=== PATIENT | male | born 1965 | race Caucasian/White ===

== ENCOUNTER 2020-06-19 13:35 | Emergency (ER) | payer OTHER, SELFPAY ==
[2020-06-19 14:15] VITALS: BP 108/85; PULSE 100; RESP 18; TEMP 37.2; O2SAT 97; BMI 26.6
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
== END 2020-06-19 15:02 | disposition home or self-care (01) ==
PROVIDERS: Emergency Provider Emergency Medicine
DX: Z04.1 Encounter for examination and observation following transport accident (principal)
CPT/HCPCS: 99282; 99284

== ENCOUNTER 2023-02-03 09:48 | Outpatient (REF) | payer OTHER, SELFPAY ==
[2023-02-03 10:58] LABS: MANUAL DIFF FLAG NO
[2023-02-03 11:10] LABS: Basophils Percent Auto 0.3 % (0-2); Eosinophils Absolute Auto 0.2 X10*3/uL (0.0-0.4); Eosinophils Percent Auto 2.5 % (0-4); Hematocrit 47.2 % (42.0-52.0); Imm Gran Abs Auto 0.02 X10*3/uL (0.00-0.03); Imm Gran Pct Auto 0.3 % (0.0-0.4); Lymphocytes Absolute Auto 2.8 X10*3/uL (1.2-4.9); Mean Corpuscular HGB Conc 33.9 g/dl (31.0-36.0); Mean Corpuscular Hemoglobin 31.1 pg (27.0-33.0); Mean Corpuscular Volume 91.7 fL (80.0-98.0); Monocytes Absolute Auto 0.8 X10*3/uL (0.1-1.2); Neutrophils Absolute Auto 2.7 x10*3/uL (2.0-8.3); Neutrophils Percent Auto 41.9 % (45-73); Platelet Count 288 X10*3/uL (160-400); Red Blood Count 5.15 X10*6/uL (4.60-5.80); White Blood Count 6.4 X10*3/uL (4.8-10.8)
[2023-02-03 11:15] LABS: INTERNATIONAL NORM RATIO 0.9 (0.9-1.1); Prothrombin Time 10.7 SEC (11.1-13.3)
[2023-02-03 12:33] LABS: Alanine Aminotransferase 31 U/L (0-40); Alkaline Phosphatase 112 U/L (39-117); Aspartate Amino Transferase 32 U/L (5-37); Bilirubin Direct 0.2 mg/dL (0.0-0.5); Bilirubin Total 0.4 mg/dL (0.0-1.0); Blood Urea Nitrogen 20 mg/dL (9-16); Estimated Glomerular Filt Rate 38; Total Protein 7.8 g/dL (6.5-8.0)
[2023-02-04 08:16] LABS: HIV AB/AG Nonreactive (Nonreactive); HIV Num 1 0.06 S/CO (0.00-0.99)
[2023-02-05 16:19] LABS: TS Negative Control Passed; TS Panel A 0; TS Panel B 0; TS Positive Control Passed; TSpotTB Negative (Negative)
[2023-02-06 08:33] LABS: HCV Log PCR 4.11 Log IU/mL (NOT DETECTED); HepC Viral Load 12800 IU/mL (NOT DETECTED)
[2023-02-06 13:34] LABS: RPR Rapid Plasma Reagin NON-REACTIVE (NON-REACTIVE)
[2023-02-06 17:13] LABS: Hepatitis C Genotype 1a
[2023-02-11 16:39] LABS: FIB-ALT 21 U/L (9-46); FIB-Alpha-2-Macroglobulin 363 mg/dL (106-279); FIB-Apolipoprotein A1 120 mg/dL (94-176); FIB-GGT 144 U/L (3-85); FIB-Haptoglobin 253 mg/dL (43-212); FIB-Total Bilirubin 0.4 mg/dL (0.2-1.2); Liver Fibrosis Score 0.63; Liver Fibrosis Stage F3; Nec Inflam Act Grade A0; Nec Inflam Act Score 0.13
== END 2023-02-03 09:49 | disposition home or self-care (01) ==
LOC: HO.HHCL 09:48
PROVIDERS: Visit Provider Emergency Medicine
DX: Z11.4 Encounter for screening for human immunodeficiency virus [HIV] (principal); Z11.1 Encounter for screening for respiratory tuberculosis; F11.90 Opioid use, unspecified, uncomplicated; B18.2 Chronic viral hepatitis C
CPT/HCPCS: 36415; 80076; 81596; 82565; 84520; 85025; 85610; 86481; 86592; 87389; 87522; 87902

== ENCOUNTER 2023-03-23 09:32 | Outpatient (REF) | payer OTHER, SELFPAY ==
[2023-03-23 12:24] LABS: Anion Gap 12 (12-20); Blood Urea Nitrogen 23 mg/dL (9-16); Calcium 9.3 mg/dL (8.4-10.2); Carbon Dioxide 22 mmol/L (22-29); Chloride 109 mmol/L (96-108); Estimated Glomerular Filt Rate 43; Glucose Random 120 mg/dL (60-115); Potassium 4.1 mmol/L (3.3-5.1); Sodium 139 mmol/L (135-145)
[2023-03-23 12:34] LABS: Prostate Specific Antigen 9.37 ng/mL (<0.05-4.0)
[2023-03-27 12:08] LABS: Hepatitis C Genotype 1a
[2023-03-30 01:28] LABS: FIB-ALT 43 U/L (9-46); FIB-Alpha-2-Macroglobulin 329 mg/dL (106-279); FIB-Apolipoprotein A1 145 mg/dL (94-176); FIB-GGT 101 U/L (3-85); FIB-Haptoglobin 217 mg/dL (43-212); FIB-Total Bilirubin 0.3 mg/dL (0.2-1.2); Liver Fibrosis Score 0.44; Liver Fibrosis Stage F1-F2; Nec Inflam Act Grade A0-A1; Nec Inflam Act Score 0.28
== END 2023-03-23 09:33 | disposition home or self-care (01) ==
LOC: HO.HHCL 09:32
PROVIDERS: Visit Provider Nurse Practitioner Primary Care
DX: Z12.5 Encounter for screening for malignant neoplasm of prostate (principal); R79.89 Other specified abnormal findings of blood chemistry; R35.1 Nocturia; B18.2 Chronic viral hepatitis C
CPT/HCPCS: 36415; 80048; 81596; 84153; 87902

== ENCOUNTER 2023-08-05 11:35 | Outpatient (REF) | payer OTHER, SELFPAY ==
[2023-08-05 14:02] LABS: MANUAL DIFF FLAG NO
[2023-08-05 14:13] LABS: Basophils Percent Auto 0.5 % (0-2); Eosinophils Absolute Auto 0.1 X10*3/uL (0.0-0.4); Eosinophils Percent Auto 0.8 % (0-4); Hematocrit 45.4 % (42.0-52.0); Hemoglobin 15.6 g/dl (14.0-18.0); Imm Gran Abs Auto 0.02 X10*3/uL (0.00-0.03); Imm Gran Pct Auto 0.3 % (0.0-0.4); Lymphocytes Absolute Auto 2.1 X10*3/uL (1.2-4.9); Lymphocytes Percent Auto 35.3 % (20-40); Mean Corpuscular HGB Conc 34.4 g/dl (31.0-36.0); Mean Corpuscular Hemoglobin 31.9 pg (27.0-33.0); Mean Corpuscular Volume 92.8 fL (80.0-98.0); Mean Platelet Volume 10.8 fL (9.4-12.4); Monocytes Absolute Auto 0.7 X10*3/uL (0.1-1.2); Monocytes Percent Auto 11.8 % (2-11); Neutrophils Absolute Auto 3.1 x10*3/uL (2.0-8.3); Neutrophils Percent Auto 51.3 % (45-73); Platelet Count 295 X10*3/uL (160-400); Red Blood Count 4.89 X10*6/uL (4.60-5.80)
[2023-08-05 14:30] LABS: Estimated Average Glucose 111 mg/dL; Hemoglobin A1C 152.2877 umol/L; Hemoglobin A1c % 5.5 % (<6.0)
[2023-08-05 14:35] LABS: Alanine Aminotransferase 76 U/L (0-40); Albumin Level 4.2 g/dL (3.5-5.0); Alkaline Phosphatase 102 U/L (39-117); Anion Gap 12 (12-20); Aspartate Amino Transferase 63 U/L (5-37); Bilirubin Total 0.3 mg/dL (0.0-1.0); Blood Urea Nitrogen 24 mg/dL (9-16); Calcium 9.7 mg/dL (8.4-10.2); Carbon Dioxide 22 mmol/L (22-29); Chloride 109 mmol/L (96-108); Estimated Glomerular Filt Rate 44; Glucose Random 95 mg/dL (60-115); Potassium 4.2 mmol/L (3.3-5.1); Sodium 139 mmol/L (135-145); Total Protein 7.5 g/dL (6.5-8.0)
== END 2023-08-05 11:36 | disposition home or self-care (01) ==
LOC: HO.HHCL 11:35
PROVIDERS: Visit Provider Nurse Practitioner Family
DX: Z01.812 Encounter for preprocedural laboratory examination (principal)
CPT/HCPCS: 36415; 80053; 83036; 85025

== ENCOUNTER 2023-09-28 11:29 | Outpatient (REF) | payer OTHER, SELFPAY ==
[2023-09-28 13:20] LABS: MANUAL DIFF FLAG NO
[2023-09-28 13:47] LABS: Basophils Percent Auto 0.5 % (0-2); Eosinophils Absolute Auto 0.1 X10*3/uL (0.0-0.4); Eosinophils Percent Auto 1.5 % (0-4); Hematocrit 48.1 % (42.0-52.0); Hemoglobin 16.5 g/dl (14.0-18.0); Imm Gran Abs Auto 0.04 X10*3/uL (0.00-0.03); Imm Gran Pct Auto 0.5 % (0.0-0.4); Lymphocytes Absolute Auto 1.9 X10*3/uL (1.2-4.9); Lymphocytes Percent Auto 26.3 % (20-40); Mean Corpuscular HGB Conc 34.3 g/dl (31.0-36.0); Mean Corpuscular Hemoglobin 32.2 pg (27.0-33.0); Mean Corpuscular Volume 93.9 fL (80.0-98.0); Monocytes Absolute Auto 0.9 X10*3/uL (0.1-1.2); Monocytes Percent Auto 12.6 % (2-11); Neutrophils Absolute Auto 4.3 x10*3/uL (2.0-8.3); Neutrophils Percent Auto 58.6 % (45-73); Platelet Count 291 X10*3/uL (160-400); Red Blood Count 5.12 X10*6/uL (4.60-5.80); Red Cell Distribution Width 13.7 % (11.0-16.0); White Blood Count 7.3 X10*3/uL (4.8-10.8)
[2023-09-28 14:31] LABS: Anion Gap 13 (12-20); Blood Urea Nitrogen 23 mg/dL (9-16); C Reactive Protein 0.58 mg/dL (< or = 0.50); Calcium 9.8 mg/dL (8.4-10.2); Carbon Dioxide 24 mmol/L (22-29); Chloride 105 mmol/L (96-108); Estimated Glomerular Filt Rate 38; Ferritin 103 ng/mL (20-250); Glucose Random 92 mg/dL (60-115); Iron 103 mcg/dL (45-160); Percent Iron Saturation 27 % (15-50); Potassium 4.3 mmol/L (3.3-5.1); Sodium 138 mmol/L (135-145); Total Iron Binding Capacity 387 mcg/dL (228-428); Unsaturated Iron Binding 284 ug/dL
[2023-09-28 14:32] LABS: Erythrocyte Sedimentation Rate 10 MM/HR (0-15)
== END 2023-09-28 11:30 | disposition home or self-care (01) ==
LOC: HO.HHCL 11:29
PROVIDERS: Visit Provider Internal Medicine
DX: G25.81 Restless legs syndrome (principal)
CPT/HCPCS: 36415; 80048; 82728; 83540; 85025; 85652; 86140

== ENCOUNTER 2023-10-16 09:27 | Outpatient (REF) | payer OTHER, SELFPAY ==
[2023-10-16 11:51] LABS: Creatinine Urine 105.33 mg/dL
[2023-10-16 11:57] LABS: Anion Gap 14 (12-20); Blood Urea Nitrogen 24 mg/dL (9-16); Calcium 9.6 mg/dL (8.4-10.2); Carbon Dioxide 22 mmol/L (22-29); Chloride 108 mmol/L (96-108); Estimated Glomerular Filt Rate 40; Glucose Random 137 mg/dL (60-115); Magnesium 2.1 mg/dL (1.6-2.6); Sodium 140 mmol/L (135-145); TSH reflex Free T4 1.64 uIU/mL (0.32-4.0)
== END 2023-10-16 09:28 | disposition home or self-care (01) ==
LOC: HO.HHCL 09:27
PROVIDERS: Visit Provider Nurse Practitioner Primary Care
DX: G25.81 Restless legs syndrome (principal); I10 Essential (primary) hypertension
CPT/HCPCS: 36415; 80048; 82043; 82570; 83735; 84443

== ENCOUNTER 2023-10-30 09:17 | Outpatient (REF) | payer OTHER, SELFPAY ==
--- NOTE | ~2023-10-30 | XR_ITS ---
EXAMINATION: XR ANKLE, RIGHT CLINICAL INFORMATION: Right ankle pain COMPARISON: None available. TECHNIQUE: AP, lateral, and mortise views of the right ankle. FINDINGS: No fracture. Alignment is anatomic. No erosions. Joint spaces are maintained. Soft tissues are normal. XR/XR ankle RT min 3V IMPRESSION: Normal right ankle. Electronically signed by: Robbie Navarro MD 11/05/2023 01:20 PM EDT
[2023-10-30 12:08] LABS: Uric Acid 6.2 mg/dL (3.4-7.0)
[2023-10-30 12:32] LABS: Prostate Specific Antigen 11.85 ng/mL (<0.05-4.0)
== END 2023-10-30 09:18 | disposition home or self-care (01) ==
LOC: HO.HHCL 09:17
PROVIDERS: Visit Provider Nurse Practitioner Primary Care
DX: R39.9 Unspecified symptoms and signs involving the genitourinary system (principal); M25.571 Pain in right ankle and joints of right foot; M25.471 Effusion, right ankle; Z12.5 Encounter for screening for malignant neoplasm of prostate
CPT/HCPCS: 36415; 73610; 84153; 84550

== ENCOUNTER 2024-11-03 10:24 | Outpatient (REF) | payer OTHER, SELFPAY ==
--- NOTE | ~2024-11-03 | XR_ITS ---
EXAMINATION: XR LUMBOSACRAL SPINE CLINICAL INFORMATION: atraumatic chronic back pain COMPARISON: None available. TECHNIQUE: Three views of the lumbosacral spine. FINDINGS: No scoliosis. Normal lordosis. No subluxations. No fracture, compression deformity, or suspicious bone lesion. Severe disc degeneration L5-S1 with disc vacuum phenomenon and marginal disc osteophytic spurring. There is mild disc degeneration at the other levels. Normal facet alignment. There is mild degenerative facet changes L4-S1. Soft tissues demonstrate mild vascular calcifications. XR/XR lumbar spine 2-3V IMPRESSION: 1. No acute findings of the lumbar spine. 2. Spondylosis mainly confined to L5-S1. Electronically signed by: Ramirez Ramos MD 11/03/2024 01:27 PM EDT
--- OUTSIDE RECORDS SUMMARY | 2024-11-03 09:00 | XMS_ITS | Encounter Summary ---
Author Organization [employer] Address [address] [place] [address] 7[address] [place] [address] Care Team Providers Care Chip Person Name Role Phone Jessa Gilliland Primary Care Provider [phone] Reason for Visit * Reason Comments CHW - Office Visit Encounter Details Date Type Department Care Team (Latest Contact Info) Description 11/03/2024 9:00 AM EDT Office Visit [facility] [address] [place], [place] [phone] Jessa Gilliland ANP [address] [place] [address] Cardiomyopathy, unspecified type (CMS/HCC) (Primary Dx); Cardiac defibrillator in situ; Chronic hepatitis C without hepatic coma (CMS/HCC); Smoker; Impaired fasting glucose; Elevated PSA, between 10 and less than 20 ng/ml; Primary hypertension; Mitral valve insufficiency, unspecified etiology; Screening for malignant neoplasm of colon; Screening for colon cancer; Chronic midline low back pain with bilateral sciatica Social History Tobacco Use Types Packs/Day Years [...] Questionnaire -2 Score 0 11/03/2024 10:15 AM Liz Toscano MA * Little interest or pleasure in doing things Answer Date of Assessment Author Not at all 11/03/2024 10:15 AM EDT Liz Monteiro MA * Feeling down, depressed, or hopeless Answer Date of Assessment Author Not at all 11/03/2024 10:15 AM Liz Toscano MA * Trouble falling or staying asleep, or sleeping too much Answer Date of Assessment Author Nearly every day 11/03/2024 10:15 AM EDLiz Dudley MA * Feeling tired or having little energy Answer Date of Assessment Author Nearly every day 11/03/2024 10:15 AM Liz Toscano MA * Poor appetite or overeating Answer Date of Assessment Author Several days 11/03/2024 10:15 AM Liz Toscano MA * Feeling bad about yourself - or that you are a failure or have let yourself or your family down Answer Date of Assessment Author Not at all 11/03/2024 10:15 AM Liz Toscano MA * Trouble concentrating on things, such as reading the newspaper or watching television Answer Date of Assessment Author Several days 11/03/2024 10:15 AM Liz Toscano MA * Moving or speaking so slowly that other people could have noticed? Or the opposite - being so fidgety or restless that you have been moving around a lot more than usual. Answer Date of Assessment Author Several days 11/03/2024 10:15 AM Liz Toscano MA * Thoughts that you would be better off or hurting yourself in some way Answer Date of Assessment Author Not at all 11/03/2024 10:15 AM Liz Toscano MA * Patient Health Questionnaire-9 Score Answer Date of Assessment Author 9 11/03/2024 10:15 AM Liz Toscano MA * How difficult have these problems made it for you to do your work, take care of things at home, or get along with other people? Answer Date of Assessment Author Not difficult at all 11/03/2024 10:15 AM Liz James MA documented as of this encounter Plan of Treatment Upcoming Encounters Date Type Department Care Team (Late st Contact Info) Description 11/21/2024 9:30 AM EDT Clinical Support [facility] [address] [place] [phone] 01/05/2025 9:30 AM EST Office Visit [facility] [address] [place] [phone] Jessa Gilliland ANP [address] [place] [address] Scheduled Orders Name Type Priority Associated Diagnoses Orde r Schedule PSA,Total Lab Routine Elevated PSA, between 10 and less than 20 ng/ml Expected: 11/03/2024 (Approximate), Expires: 11/03/2025 Lipid Panel, Standard Lab Routine Impaired fasting glucose Expected: 11/03/2024 (Approximate), Expires: 11/03/2025 Comprehensive Metabolic Panel Lab Routine Primary hypertension Expected: 11/03/2024 (Approximate), Expires: 11/03/2025 Hepatitis C Viral RNA, Quantitative, Real-Time PCR Lab Routine Chronic hepatitis C without hepatic coma (CMS/HCC) Expected: 11/03/2024 (Approximate), Expires: 11/03/2025 Albumin, Random Urine W/Creatinine Lab Routine Primary hypertension Expected: 11/03/2024 (Approximate), Expires: 11/03/2025 Hemoglobin A1c Lab Routine Impaired fasting glucose Expected: 11/03/2024 (Approximate), Expires: 11/03/2025 Cologuard colon cancer screening Lab Routine Screening for colon cancer Ordered: 11/03/2024 XR Lumbar Spine 2-3 Views Imaging Routine Chronic midline low back pain with bilateral sciatica Expected: 11/03/2024, Expires: 11/03/2025 documented as of this encounter Visit Diagnoses Diagnosis Cardiomyopathy, unspecified type (CMS/HCC)- Primary Cardiac defibrillator in situ Chronic hepatitis C without hepatic coma (CMS/HCC) Smoker Tobacco use disorder Impaired fasting glucose Elevated PSA, between 10 and less than 20 ng/ml Primary hypertension Unspecified essential hypertension Mitral valve insufficiency, unspecified etiology Screening for malignant neoplasm of colon Screening for colon cancer Special screening for malignant neoplasms, colon Chronic midline low back pain with bilateral sciatica documented in this encounter Additional Health Concerns Assessment Noted Time PHQ-9 Depression Total Score: 9 11/04/19 25 10:15 AM EDT documented as of this encounter Care Teams Chip Person Relationship Specialty Start Date End Date Jessa Gillilnad ANP [address] [place] [address] PCP - General Family Medicine 12/20/19 documented as of this encounter
--- OUTSIDE RECORDS SUMMARY | 2024-11-03 11:44 | XMS_ITS | Encounter Summary ---
Author Organization [facility] Address [address] [place] [phone] Phone Care Team Providers Care Dietary Internship Name Role Phone Unknown, Unknown Primary Care Provider Arthur dillon Encounter Details Date Type Department Care Team (Late st Contact Info) Description 10/21/2018 Procedure [facility] [address] [place] [address] Social History Tobacco Use Types Packs/Day Years Used Date Smoking Tobacco: Never Assessed Sex and Gender Information Value Date Recorded Sex Assigned at Not on file Legal Sex Male 2:33 PM EST Gender Identity Not on file Sexual Orientation Not on file documented as of this encounter Plan of Treatment Not on file documented as of this encounter Visit Diagnoses Not on filedocumented in this encounter Care Teams Dietary Internship Relationship Specialty Start Date End Date Unknown, Unknown, PCP - General 03/10/18 documented as of this encounter Additional Source Comments The information contained in this document represents components of the legal health record. It is not the complete legal health record.[facility]
--- OUTSIDE RECORDS SUMMARY | 2024-11-03 11:44 | XMS_ITS | Encounter Summary ---
Author Organization [employer] Address [address] [place] [address] [address]t h Floor [place] [id number] Care Team Providers Care Catalogue Maker Name Role Phone Jessa Gilliland Primary Care Provider [phone] Reason for Visit * Reason Onset Date Comments chart prep 07/28/2023 Encounter Details Date Type Department Care Team (Late st Contact Info) Description 07/28/2023 Telephone [facility] [address] [place] [address] Jessa Gilliland ANP [address] [place] [address] chart prep Social History Tobacco Use Types Packs/Day Years Used Date Smoking Tobacco: Every Day Cigarettes 0.3 0.5 Alcohol Use Standard Drinks/Week Comments Yes 0 (1 standard drink = 0.6 oz pur e alcohol) Depression Answer Date Recorded Patient Health Questionnaire-9 Score 9 03/10/2023 Patient Health Questionnaire-9 Score 9 03/10/2023 Last PHQ-9: Questionnaire Data Not on file 0 03/10/2023 Housing Stability Answer Date Recorded What is your housing situation today? I have yoli nieves 03/10/[address] you li ve. Do you have problems with any of the following? None of the above 03/10/2023 Food Insecurity Answer Date Recorded Within the past 12 months, y ou worried that your food would run out before you got money to buy more: Never True 03/10/2023 Within the past 12 months,th e food you bought just didn't last and you didn't have enough money to get more: Never True 11/2023 Transportation Answer Date Recorded In the past 12 months, has l ack of transportation kept you from medical appts, meetings, work or from getting things needed for daily living? No 03/10/2023 Utilities Answer Date Recorded In the past 12 months, has t he electric, gas, oil or water company threatened to shut off services in your home? No 03/10/2023 Depression Answer Date Recorded Patient Health Questionnaire-2 Score 2 03/10/2023 Sex and Gender Information Value Date Recorded Sex Assigned at Male 12/30/2021 10:15 AM EDT Legal Sex Male 10:15 AM EDT Gender Identity Male 12/30/2021 10:15 AM EDT Sexual Orientation Straight 12/30/2021 10 :15 AM EDT documented as of this encounter Plan of Treatment Upcoming Encounters Date Type Department Care Team (Late st Contact Info) Description 11/21/2024 9:30 AM EDT Clinical Support [address] [address] 01/05/2025 9:30 AM EST Office Visit [address] [address] Jessa Gilliland ANP [address] [place] [phone] documented as of this encounter Visit Diagnoses Not on filedocumented in this encounter Additional Health Concerns Assessment Noted Time PHQ-9 Depression Total Score: 9 03/10/19 24 10:46 AM EST documented as of this encounter Care Teams Catalogue Maker Relationship Specialty Start Date End Date Jessa Gilliland ANP [address] [place] [phone] PCP - General Family Medicine 12/20/19 documented as of this encounter
--- OUTSIDE RECORDS SUMMARY | 2024-11-03 11:44 | XMS_ITS | Clinical Summary ---
Author Organization [employer] Address [address] [facility] 7t [place] [address] Care Team Providers Care Crap Game Box Person Name Role Phone Jessa Gilliland Primary Care Provider [phone] Allergies No known active allergies Medications carvedilol (Coreg) 25 MG tablet Take 1 tablet by mouth in the morning and at bedtime. Active chlorhexidine (Periogard) 0.12 % solution Place 15 mL into mouth between cheek and gum every 12 (twelve) hours. 1 Active furosemide (Lasix) 40 MG tablet Take 1 tablet by mouth 1 (one) time each day. Active hydrALAZINE (Apresoline) 50 MG tablet Take 1 tablet by mouth in the morning, at noon, and at bedtime. Active lisinopril 40 MG tablet Take 1 tablet by mouth 1 (one) time each day. Active naloxone (Narcan) 4 mg/0.1 mL nasal spray Administer 4 mg into affected nostril(s) if needed for opioid reversal. May repeat every 2-3 minutes if needed, alternating nostrils, until medical assistance becomes available. Active cyclobenzaprine (Flexeril) 10 MG tablet 1 tablet PO at bedtime prn leg cramps/restless ness. 3 tablet 4 Active cyclobenzaprine (Flexeril) 10 MG tablet 1 tablet PO q8-12 hours prn muscle cramps and restlessness. May cause drowsiness. 15 tablet 4 Active albuterol 108 (90 Base) MCG/ACT inhaler INHALE 2 PUFFS EVERY 4 HOURS IF NEEDED FOR WHEEZING. 18 g 5 Active rOPINIRole (Requip) 0.5 MG tabletIndication s:Restless leg syndrome TAKE 1 TABLET BY MOUTH TWICE A DAY 180 tablet 1 5 Active amLODIPine (Norvasc) 10 MG tablet Take 1 tablet by mouth Once per day. 5 Active Blood Pressure kitIndications:P rimary hypertension 1 each 2 times daily. 1 kit 5 11/04/19 26 Active Active Problems Problem Noted Date Diagnosed Date Elevated PSA, between 10 and less than 20 ng/ml 11/03/2024 Chronic cough 07/30/2024 Wheeze 08/05/2023 Assessment & Plan (08/06/2023 2:58 PM EDT): Encouraged complete smoking cessation, prn albuterol prescribed for inspiratory wheeze audible on exam Pre-op evaluation 08/04/2023 Assessment & Plan (08/06/2023 3:02 PM EDT): Pt with significant social challenges, sig perioral disease, with active symptoms with hx of ANANDA, hep c, tobacco use, cardiomyopathy, htn, with a cardiac defbrilator in situ whom I suspect has mild stable COPD. Amox is renewed, and pt is at average risk for complications with consultation of cardiac team. Pt wishes to proceed with surgery. Homeless 03/10/2023 Malocclusion 05/30/2022 Partially edentulous mandible 05/22/2022 Periodontal disease 01/31/2022 Cardiac defibrillator in situ 02/18/2021 Assessment & Plan (08/06/2023 2:58 PM EDT): Per cardiology, stable Cardiomyopathy 02/18/2021 Assessment & Plan (08/06/2023 2:59 PM EDT): Hx of heart failure, however currently stable Mitral valve regurgitation 02/18/2021 Smoker 12/26/2011 Chronic hepatitis C 10/27/2011 Chronic low back pain 10/27/2011 Depressive disorder 10/27/2011 History of alcohol abuse 10/27/2011 Hypertension 10/27/2011 Assessment & Plan (08/06/2023 2:59 PM EDT): Bp at goal today, continue current regimen Impaired fasting glucose 10/27/2011 Opioid dependence on agonist therapy 10/22/2011 Assessment & Plan (08/06/2023 2:59 PM EDT): Recently stopped suboxone, reports stable no drug use or cravings Encounters Date Type Department Care Team Description 11/03/2024 9:00 AM EDT Office Visit [facility] [address] [place] [address] Jessa Gilliland ANP Cardiomyopathy, unspecified type (CMS/HCC) (Primary Dx); Cardiac defibrillator in situ; Chronic hepatitis C without hepatic coma (CMS/HCC); Smoker; Impaired fasting glucose; Elevated PSA, between 10 and less than 20 ng/ml; Primary hypertension; Mitral valve insufficiency, unspecified etiology; Screening for malignant neoplasm of colon; Screening for colon cancer; Chronic midline low back pain with bilateral sciatica 11/03/2024 Travel 10/27/2024 Patient Outreach [facility] [address] [place] [address] Jessa Gilliland ANP Pre-visit Planning ((Unable to reach for PVP screening, LVM) to be completed in office ) 09/23/2024 Refill [facility] [address] [place] [address] Jessa Gilliland ANP Restless leg syndrome 08/26/2024 Refill [facility] [address] [place] [address] Jessa Gilliland ANP Restless leg syndrome 08/20/2024 Refill [facility] [address] [place] [address] Radha Petit FNP from Last 3 Months Immunizations Immunization Administration Dates Next Due Hep B, adult 02/27/2010,05/08/2005,04/09/2005 Influenza Injectable Quadriv alant Preservative Free IIV4 MDCK 02/20/2020 Influenza injectable quadriv alent IIV4 with preservative 12/29/2016 Influenza injectable quadriv alent preservative free 03/10/2023,03/22/2021,12/25/2014 Influenza, IIV3, injectable 12/26/2013 Influenza, Split (incl. melissa fied surface antigen) 10/27/2011 MMR 11/19/2000 Moderna Covid-19 Vaccine 12+ 03/22/2021,06/28/19,05/30/2020 Pfizer Covid-19 Vaccine 12+ 03/10/2023 Pneumococcal Conjugate PCV 20 11/03/2024 Pneumococcal Polysaccharide PPSV23 04/09/2005 TD (adult), 2 Lf tetanus tox oid, preservative free, adsorbed 11/19/2000 Tdap 11/03/2024,10/27/2011 Zoster, Recombinant 04/24/2020,02/20/2020 Social History Tobacco Use Types Packs/Day Years [...] with others, in a hotel, in a senior living, living outside on the street, on a [...] Orientation Straight 12/30/2021 10 :15 AM EDT Last Filed Vital Signs Vital Sign Reading Time Taken Comments Blood Pressure 140/102 11/03/2024 9:26 AM EDT Pulse 110 11/03/2024 9:26 AM EDT Temperature 36.2 C (97.1 F) 11/03/2024 9:26 AM EDT Respiratory Rate 16 11/03/2024 9:26 AM EDT Oxygen Saturation 99% 11/03/2024 9:26 AM EDT Inhaled Oxygen Concentration - - Weight 85.3 kg (188 lb) 11/03/2024 9:26 AM EDT Height 167.6 cm (5' 6 ) 07/29/2024 11:12 AM EDT Body Mass Index 30.34 07/29/2024 11:12 AM EDT Plan of Treatment Upcoming Encounters Date Type Department Care Team (Late st Contact Info) Description 11/21/2024 9:30 AM EDT Clinical Support [facility] [address] [place] [phone] 01/05/2025 9:30 AM EST Office Visit [facility] [address] [place] [address] Jessa Gilliland ANP [address] [place] [address] Health Maintenance Due Date Last Done Comments CT Colonography 1966 Colonoscopy 1966 Colorectal Cancer Screening 1966 Dental Oral Exam 1966 Dental Prophylaxis 1966 Dental X-Ray: Bitewings 1966 Dental X-Ray: Full Mouth 1966 FIT DNA/Cologuard 1966 FIT 1966 FOBT 1966 Sigmoidoscopy 1966 Hepatitis A Vaccines (1 of 2 - Risk 2-dose series) 1985 COVID-19 Vaccine ( season) 2024 03/10/2023, 03/22/2021, 06/27/2020, Additional history exists Influenza Vaccine (#1) 2024 , 03/22/2021, 02/20/2020, Additional history exists Lipid Panel 02/19/2025 02/20/2020 Depression Monitoring 05/03/2025 11/03/2024, 025 Alcohol/Substance Use Screening 07/29/2025 07/29/2024 Disability Screening 07/29/2025 07/29/2024 SDOH Screening 11/03/2025 11/03/2024 Tobacco Screening 11/03/2025 11/03/2024 DTaP/Tdap/Td Vaccines (3 - Td or Tdap) 11/03/2034 11/03/2024, 10/27/2011, 11/19/2000 RSV Patients and Patients Aged 60 years or older (1 - 1-dose 75+ series) 2041 Hepatitis B Vaccines Completed 02/27/2010, 05/08/2005, 04/09/2005 Zoster Vaccines Completed 04/24/2020, 02/20/2020 HIV Screening Completed 02/03/2023, 12/31, 02/20/2020 Pneumococcal Vaccine: 50+ Years Completed 11/03/2024, 04/09/2005 HIB Vaccines Aged Out No longer eligi ble based on patient's age to complete this topic HPV Vaccines Aged Out No longer eligi ble based on patient's age to complete this topic IPV Vaccines Aged Out No longer eligi ble based on patient's age to complete this topic Meningococcal B Vaccine Aged Out No l onger eligible based on patient's age to complete this topic Meningococcal Vaccine Aged Out No justin fortunato eligible based on patient's age to complete this topic RSV under 20 months Aged Out No longe r eligible based on patient's age to complete this topic Rotavirus Vaccines Aged Out No longer eligible based on patient's age to complete this topic Procedures Procedure Name Priority Date/Time Associated Diagnosis Comments HIV 1/2 ANTIGEN/ANTIBODY, FOURTH GENERATION W/RFL Routine 02/03/2023 9:53 AM EST Chronic hepatitis C without hepatic coma (CMS/HCC) LIPID PANEL, STANDARD Routine 02/20/2020 12:03 PM EST from Last 3 Months or Most Recently Relevant to Health Maintenance Results * HIV-1/2 Antigen and Antibodies, Fourth Generation, with Reflexes (02/03/2023 9:53 AM EST) HIV AB/AG Nonreactive Nonreactive [facility] Comment:HIV-1 p24 Ag and/or HIV-1/HIV-2 Ab not detected.A test result that is nonreactive does not exclude thepossibility of exposure to or infection with HIV-1 and/orHIV-2. Nonreactive results in this assay for individualswith prior exposure to HIV-1 and/or HIV-2 may be due toantigen and antibody levels that are below the limit ofdetection of this assay.The [employer] HIV Ag/Ab Combo assay result andsupplemental assay results should be interpreted inconjunction with the patient's clinical presentation,history and other laboratory results. If the results areinconsistent with clinical evidence, additional testing issuggested to confirm the result. Blood Venous blood specimen / Unknown 02/03/2023 9:53 AM EST 02/03/2023 10:56 AM EST us Carlos Whitlock MD LAB BLOOD ORDERABLES Final Res ult [facility] [address] [place] [phone] * LIPID PANEL, STANDARD (02/20/2020 12:03 PM EST) Pathologist [facility] Chol/HDLC Ratio 3.0 <5.0 (calc) [facility] Cholesterol, Total 167 <200 mg/dL [facility] HDL Cholesterol 56 > OR = 40 mg/dL [facility] LDL Cholesterol 92 mg/dL (calc) [facility] Comment: Reference range: <100 Desirable range <100 mg/dL for primary prevention; <70 mg/dL for patients with CHD or diabetic patients with > or = 2 CHD risk factors. LDL-C is now calculated using the Alfonso-Melendez calculation, which is a validated novel method providing better accuracy than the Friedewald equation in the estimation of LDL-C. Alfonso SS et al. PAKO. 2013;310(19): 0972-7535 (http://education.[employer].com/faq/YQM586) Non-HDL Cholesterol 111 <130 mg/dL (calc) [facility] Comment: For patients with diabetes plus 1 major ASCVD risk factor, treating to a non-HDL-C goal of <100 mg/dL (LDL-C of <70 mg/dL) is considered a therapeutic option. Triglycerides 95 <150 mg/dL [facility] 02/20/2020 12:0 3 PM EST us [facility] LAB BLOOD ORDERABLES Final Resul t [facility] [address] from Last 3 Months or Most Recently Relevant to Health Maintenance Insurance [employer] [facility] < [address] [place] [id number] Care Teams Crap Game Box Person Relationship Specialty Start Date End Date Jessa Gilliland ANP [address] [place] [phone] PCP - General Family Medicine 12/20/19
--- OUTSIDE RECORDS SUMMARY | 2024-11-03 11:44 | XMS_ITS | Encounter Summary ---
Author Organization [employer] Address [address] [place] [address] 7t [place] [address] Care Team Providers Care Key Punch Teacher Name Role Phone Jessa Gilliland Primary Care Provider [phone] Reason for Visit * Reason Onset Date Comments Call Back Request 08/18/2023 Encounter Details Date Type Department Care Team (Late st Contact Info) Description 08/18/2023 Telephone [facility] [address] [place], [place] [phone] Jessa Gilliland ANP 230 [place], [place] [phone] Call Back Request Social History Tobacco Use Types Packs/Day Years [...] AM EDT documented as of this encounter Miscellaneous Notes * Telephone Encounter - Mandi Cortes - 08/18/2023 10:41 AM EDT Tc from pt requesting to speak with a nurse in regards to 6 Pre-Op appointment. Pt states is scheduled 08/31 but pt is still in pain. Declined triage. Please contact pt at [phone] documented in this encounter Plan of Treatment Upcoming Encounters Date Type Department Care Team (Late st Contact Info) Description 11/21/2024 9:30 AM EDT Clinical Support [facility] [address] [place] [address] 01/05/2025 9:30 AM EST Office Visit [facility] [address] [place] [address] Jessa Gilliland ANP [address] [place] [address] documented as of this encounter Visit Diagnoses Not on filedocumented in this encounter Additional Health Concerns Assessment Noted Time PHQ-9 Depression Total Score: 9 03/10/19 24 10:46 AM EST documented as of this encounter Care Teams Key Punch Teacher Relationship Specialty Start Date End Date Jessa Gilliland ANP [address] [place] [address] PCP - General Family Medicine 12/20/19 documented as of this encounter
--- OUTSIDE RECORDS SUMMARY | 2024-11-03 11:44 | XMS_ITS | Encounter Summary ---
Author Organization [employer] Address [address] [place] [address] 7t [place] [address] Care Team Providers Care Rough Rice Tender Name Role Phone Jessa Gilliland Primary Care Provider [phone] Encounter Details Date Type Department Care Team (Late st Contact Info) Description 07/28/2023 Telephone [facility] 230 [place] [address] Jessa Gilliland ANP 230 [place] [address] Social History Tobacco Use Types Packs/Day Years [...] Description 11/21/2024 9:30 AM EDT Clinical Support [address] [address] 01/05/2025 9:30 AM EST Office Visit [address] [address] Jessa Gilliland ANP [address] [place] [address] documented as of this encounter Visit Diagnoses Not on filedocumented in this encounter Additional Health Concerns Assessment Noted Time PHQ-9 Depression Total Score: 9 03/10/19 24 10:46 AM EST documented as of this encounter Care Teams Rough Rice Tender Relationship Specialty Start Date End Date Jessa Gilliland ANP [address] [place] [address] PCP - General Family Medicine 12/20/19 documented as of this encounter
--- OUTSIDE RECORDS SUMMARY | 2024-11-03 11:44 | XMS_ITS | Clinical Summary ---
Author Organization [facility] Address [address] [place] [phone] Phone Care Team Providers Care Machine Assembler Supervisor Name Role Phone Unknown, Unknown Primary Care Provider Arthur dillon Social History Tobacco Use Types Packs/Day Years Used Date Smoking Tobacco: Never Assessed Education Answer Date Recorded Are you interested in more education? Not on maria d e 06/27/2022 Are you concerned about learning? Not on file 06/27/2022 No 06/27/2022 No 06/27/2022 Digital Access Answer Date Recorded No 07/29/2022 No 07/29/2022 No 07/29/2022 Reliable internet access at home? Not on file 07/29/2022 Device with a working camera? Not on file Sex and Gender Information Value Date Recorded Sex Assigned at Not on file Legal Sex Male 2:33 PM EST Gender Identity Not on file Sexual Orientation Not on file Plan of Treatment Not on file Medical Devices Not on file Insurance [facility] ONE CARE MEDICARE REPLACEMENT SAMANTHA CORRALES [id number] [facility] MEDICARE REPLACEMENT [facility] MEDICARE REPLACEMENT [facility] MEDICARE REPLACEMENT [facility] CARE MEDICARE REPLACEMENT Member Subscriber Plan / Payer (Ef fective 2018-Present) Name:Pancho Hernandez Relation to Subscriber:Self Name:Pancho Hernandez Payer ID:[id number] (NAIC) Group ID:Not on file Type:Medicare Address: [address] SAMANTHA CORRALES05 [facility] ONE CARE MEDICARE REPLACEMENT Care Teams Machine Assembler Supervisor Relationship Specialty Start Date End Date Unknown, Unknown, PCP - General 03/10/18 Additional Source Comments The information contained in this document represents components of the legal health record. It is not the complete legal health record.[facility]
--- OUTSIDE RECORDS SUMMARY | 2024-11-03 11:44 | XMS_ITS | Encounter Summary ---
Author Organization [employer] Address [address] [place] [address] 7t [place] [address] Care Team Providers Care Senior Ux Designer Name Role Phone Jessa Gilliland Primary Care Provider [phone] Reason for Visit * Reason Comments Med Refill Encounter Details Date Type Department Care Team ([facility] Contact Info) Description 11/07/2022 Refill [facility] [address] [place] [address] [phone] Carlos Whitlock MD [address] [place] [address] [phone] Uncomplicated opioid use Social History Tobacco Use Types Packs/Day Years Used Date Smoking Tobacco: Every Day Cigarettes 0.3 0.5 Alcohol Use Standard Drinks/Week Comments Yes 0 (1 standard drink = 0.6 oz pur e alcohol) Sex and Gender Information Value Date Recorded Sex Assigned at Male 12/30/2021 10:15 AM EDT Legal Sex Male 10:15 AM EDT Gender Identity Male 12/30/2021 10:15 AM EDT Sexual Orientation Straight 12/30/2021 10 :15 AM EDT documented as of this encounter Plan of Treatment Upcoming Encounters Date Type Department Care Team ([facility] Contact Info) Description 11/21/2024 9:30 AM EDT Clinical Support [facility] [address] [place] [address] [phone] 01/05/2025 9:30 AM EST Office Visit [facility] [address] [place] [address] Jessa Gilliland ANP 230 [place] [address] documented as of this encounter Visit Diagnoses Diagnosis Uncomplicated opioid use documented in this encounter Care Teams Senior Ux Designer Relationship Specialty Start Date End Date Jessa Gilliland ANP 230 [place] [address] PCP - General Family Medicine 12/20/19 documented as of this encounter
--- OUTSIDE RECORDS SUMMARY | 2024-11-03 11:44 | XMS_ITS | Encounter Summary ---
Author Organization [employer] Address [address] [place] [address] 7t [place] [address] Care Team Providers Care Admission Discharge Rn Name Role Phone Jessa Gilliland Primary Care Provider [phone] Reason for Visit * Reason Comments Med Refill Encounter Details Date Type Department Care Team ([facility] Contact Info) Description 09/12/2022 Refill [facility] [address] [place] [address] [phone] Carlos Whitlock MD [address] [place] [address] [phone] Uncomplicated opioid use Social History Tobacco Use [...] Upcoming Encounters Date Type Department Care Team ([facility] Contact Info) Description 11/21/2024 9:30 AM EDT Clinical Support [facility] [address] [place] [address] [phone] 01/05/2025 9:30 AM EST Office Visit [facility] [address] [place] [address] Jessa Gilliland ANP 230 [place] [address] documented as of this encounter Visit Diagnoses Diagnosis Uncomplicated opioid use documented in this encounter Care Teams Admission Discharge Rn Relationship Specialty Start Date End Date Jessa Gilliland ANP [address] [place] [address] PCP - General Family Medicine 12/20/19 documented as of this encounter
--- OUTSIDE RECORDS SUMMARY | 2024-11-03 11:44 | XMS_ITS | Encounter Summary ---
Author Organization [employer] Address [address] [place] [address] 7t [place] [address] Care Team Providers Care Major Case Detective Name Role Phone Jessa Gilliland Primary Care Provider [phone] Encounter Details Date Type Department Care Team (Latest Contact Info) Description 11/03/2024 Travel Social History Tobacco Use Types Packs/Day Years Used Date Smoking Tobacco: Former Cigarettes 0.3 0.5 Passive Smoke Exposure: Past Alcohol Use Standard Drinks/Week Comments Yes 0 [...] with others, in a hotel, in a assisted, living outside on the street, on a [...] AM EDT documented as of this encounter Functional Status * Over the [...] 11/03/2024 10:15 AM EDLiz Dudley MA * Trouble concentrating on things, such [...] 10:15 AM EDT Liz Monteiro MA * Thoughts that you would be better off or hurting yourself in some way Answer Date of Assessment Author Not at all 11/03/2024 10:15 AM EDT Liz Monteiro MA * Patient Health Questionnaire-9 Score Answer [...] Mccain [place] documented as of this encounter Plan of Treatment Upcoming Encounters Date Type Department Care Team (Late st Contact Info) Description 11/21/2024 9:30 AM EDT Clinical Support [address] [address] 01/05/2025 9:30 AM EST Office Visit [address] [address] Jessa Gilliland ANP [address] [place] [address] documented as of this encounter Visit Diagnoses Not on filedocumented in this encounter Additional Health Concerns Assessment Noted Time PHQ-9 Depression Total Score: 9 11/04/19 25 10:15 AM EDT documented as of this encounter Care Teams Major Case Detective Relationship Specialty Start Date End Date Jessa Gilliland ANP [address] [place] [address] PCP - General Family Medicine 12/20/19 documented as of this encounter
--- OUTSIDE RECORDS SUMMARY | 2024-11-03 11:44 | XMS_ITS | Encounter Summary ---
Author Organization [employer] Address [address] [place] [address] 7t [place] [address] Care Team Providers Care Die Attacher Name Role Phone Jessa Gilliland Primary Care Provider [phone] Encounter Details Date Type Department Care Team (Latest Contact Info) Description 01/23/2021 Abstract [facility] CONVERSIONS Dental, Provider, DDS Social History Tobacco Use Types Packs/Day Years [...] 11/21/2024 9:30 AM EDT Clinical Support [facility] [address] [place] [address] 01/05/2025 9:30 AM EST Office Visit [facility] [address] [place] [address] Jessa Gilliland ANP 230 [place] [address] documented as of this encounter Visit Diagnoses Not on filedocumented in this encounter Care Teams Die Attacher Relationship Specialty Start Date End Date Jessa Gilliland ANP [address] [place] [address] PCP - General Family Medicine 12/20/19 documented as of this encounter
--- OUTSIDE RECORDS SUMMARY | 2024-11-03 11:45 | XMS_ITS | Encounter Summary ---
Author Organization [employer] Address [address] [facility] 7t [place] [address] Care Team Providers Care Air Sealing Technician Name Role Phone Jessa Gilliland Primary Care Provider [phone] Reason for Visit * Reason Onset Date Comments Appointment 02/20/2022 Patient called i n at 11 stating that he didn't make it to 10am appt because mother is in the hospital. Informed patient to call back when everything blows over for rescheduling. Appt has not been removed from schedule due to having called 1 hour behind. Unsure if [facility] dental would like to cancel appt. Encounter Details Date Type Department Care Team (Late st Contact Info) Description 02/20/2022 Telephone [facility] ADULT DENTAL [address] [place], [place] [phone] Josesito Lennon DDS [address] [place], [place] [phone] Appointment (Patient called in at 11 stating that he didn't make it to 10am appt because mother is in the hospital. Informed patient to call back when everything blows over for rescheduling. Appt has not been removed from schedule due to having called 1 hour behind. Unsure if [facility] dental would like to cancel appt. ) Social History Tobacco Use Types Packs/Day Years Used Date Smoking Tobacco: Every Day Cigarettes Alcohol Use Standard Drinks/Week Comments Yes 0 (1 standard drink = 0.6 oz pur e alcohol) Sex and Gender Information Value Date Recorded Sex Assigned at Male 12/30/2021 10:15 AM EDT Legal Sex Male 10:15 AM EDT Gender Identity Male 12/30/2021 10:15 AM EDT Sexual Orientation Straight 12/30/2021 10 :15 AM EDT COVID-19 Exposure Response Date Recorded In the last 10 days, have yo u been in contact with someone who was confirmed or suspected to have Coronavirus/COVID-19? No / Unsure 02/19/2022 9:36 AM EST documented as of this encounter Miscellaneous Notes * Telephone Encounter - Marydemetria Santiagos - 02/20/2022 10:58 AM EST Patient called in at 11 stating that he didn't make it to 10am appt because mother is in the hospital. Informed patient to call back when everything blows over for rescheduling. Appt has not been removed from schedule due to having called 1 hour behind. Unsure if [facility] dental would like to cancel appt. documented in this encounter Plan of Treatment Upcoming Encounters Date Type Department Care Team (Late st Contact Info) Description 11/21/2024 9:30 AM EDT Clinical Support [address] [address] 01/05/2025 9:30 AM EST Office Visit [facility] [address] [place] [address] Jessa Gilliland ANP [address] [place] [address] documented as of this encounter Visit Diagnoses Not on filedocumented in this encounter Care Teams Air Sealing Technician Relationship Specialty Start Date End Date Jessa Gilliland ANP [address] [place] [address] PCP - General Family Medicine 12/20/19 documented as of this encounter
--- OUTSIDE RECORDS SUMMARY | 2024-11-03 11:45 | XMS_ITS | Encounter Summary ---
Author Organization [employer] Address [address] [place] [address] 7t [place] [address] Care Team Providers Care Photographic Technician Name Role Phone Jessa Gilliland Primary Care Provider [phone] Encounter Details Date Type Department Care Team (Late st Contact Info) Description 01/22/2022 Abstract [facility] 230 [place] [address] Dental, Provider, DDS Social History Tobacco Use [...] Description 11/21/2024 9:30 AM EDT Clinical Support [facility] [address] [place] [address] 01/05/2025 9:30 AM EST Office Visit [facility] [address] [place] [address] Jessa Gilliland ANP 230 [place] [address] documented as of this encounter Procedures Procedure Name Priority Date/Time Associated Diagnosis Comments 14 PREFABRICATED POST AND CORE IN ADDITION TO CROWN Routine 01/22/2022 12:00 AM EST 16 LO AMALGAM FILLING Routine 01/22/2022 12:00 AM EST 18 O AMALGAM FILLING Routine 01/22/2022 12:00 AM EST 31 O AMALGAM FILLING Routine 01/22/2022 12:00 AM EST 2 O AMALGAM FILLING Routine 01/22/2022 1 2:00 AM EST 32 EXTRACTION Routine 01/22/2022 12:00 AM EST 30 EXTRACTION Routine 01/22/2022 12:00 AM EST 19 EXTRACTION Routine 01/22/2022 12:00 AM EST 9 EXTRACTION Routine 01/22/2022 12:00 AM EST 3 EXTRACTION Routine 01/22/2022 12:00 AM EST 14 ROOT CANAL Routine 01/22/2022 12:00 AM EST 14 PFM CROWN Routine 01/22/2022 12:00 AM EST documented in this encounter Visit Diagnoses Not on filedocumented in this encounter Care Teams Photographic Technician Relationship Specialty Start Date End Date Jessa Gilliland ANP [address] [place] [address] PCP - General Family Medicine 12/20/19 documented as of this encounter
--- OUTSIDE RECORDS SUMMARY | 2024-11-03 11:45 | XMS_ITS | Clinical Summary ---
Author Organization [facility] Address [address] [place] [address] Care Team Providers Care Crisis Mental Health Therapist Name Role Phone Unavailable Primary Care Provider Unavailabl e Social History Tobacco Use Types Packs/Day Years Used Date Smoking Tobacco: Unknown Alcohol Use Standard Drinks/Week Comments Yes 0 (1 standard drink = 0.6 oz pur e alcohol) Sex and Gender Information Value Date Recorded Sex Assigned at Not on file Legal Sex Male 4:37 AM EST Gender Identity Not on file Sexual Orientation Not on file Obstetrics History Plan of Treatment Health Maintenance Due Date Last Done Comments DTaP,Tdap,and Td Vaccines (1 - Tdap) 1985 Hepatitis B Vaccines (1 of 3 - 19+ 3-dose series) 1985 Pneumococcal Vaccine: 50+ Ye ars (1 of 1 - PCV) 2016 Zoster Vaccines (1 of 2) 2016 Cholesterol Screening (Lipid Panel) 01/31/2022 Colorectal Cancer Screening: Colonoscopy 01/31/2022 HIV Screening 01/31/2022 Hepatitis C Screening 01/31/2022 Social Influencers of Health Screening 01/31/2022 Depression Screening 03/02/2024 COVID-19 Vaccine (2023-2 5 season) 2024 Influenza Vaccine (#1) 2024 HIB Vaccines Aged Out No longer eligi ble based on patient's age to complete this topic HPV Vaccines Aged Out No longer eligi ble based on patient's age to complete this topic Hepatitis A Vaccines Aged Out No long er eligible based on patient's age to complete this topic IPV Vaccines Aged Out No longer eligi ble based on patient's age to complete this topic MMR Vaccines Aged Out No longer eligi ble based on patient's age to complete this topic Meningococcal ACWY Vaccine Aged Out N o longer eligible based on patient's age to complete this topic Meningococcal B Vaccine Aged Out No l onger eligible based on patient's age to complete this topic RSV Immunization Patients Un avni 20 months Aged Out No longer eligible b ased on patient's age to complete this topic Varicella Vaccines Aged Out No longer eligible based on patient's age to complete this topic
--- OUTSIDE RECORDS SUMMARY | 2024-11-03 11:45 | XMS_ITS | Encounter Summary ---
Author Organization [employer] Address [address] [place] [address] 7t h Floor [place] [id number] Care Team Providers Care Tax Advisor Name Role Phone Jessa Gilliland Primary Care Provider [phone] Reason for Visit * Reason Comments Med Refill Encounter Details Date Type Department Care Team (Late st Contact Info) Description 08/26/2024 Refill [facility] 230 [place], [place] [phone] Jessa Gilliland ANP 230 [place], [place] [phone] Restless leg syndrome Social History Tobacco Use Types Packs/Day Years Used Date Smoking Tobacco: Former Cigarettes 0.3 0.5 Passive Smoke Exposure: Past Alcohol Use Standard Drinks/Week Comments Yes 0 (1 standard drink = 0.6 oz pur e alcohol) Depression Answer Date Recorded Patient Health Questionnaire-9 Score 6 10/15/2023 Patient Health Questionnaire-9 Score 6 10/15/2023 Last PHQ-9: Questionnaire Data Not on file 0 10/15/2023 Housing Stability Answer Date Recorded What is [...] Date Recorded Patient Health Questionnaire-2 Score 0 10/15/2023 Internet Access Answer Date Recorded Internet Access Q1 Yes 10/30/2023 Internet Access Q2 Not on file 10/30/2023 Sex and Gender Information Value Date Recorded Sex Assigned at Male 12/30/2021 10:15 AM EDT Legal Sex Male 10:15 AM EDT Gender Identity Male 12/30/2021 10:15 AM EDT Sexual Orientation Straight 12/30/2021 10 :15 AM EDT documented as of this encounter Plan of Treatment Upcoming Encounters Date Type Department Care Team (Late st Contact Info) Description 11/21/2024 9:30 AM EDT Clinical Support [address] [address] 01/05/2025 9:30 AM EST Office Visit [address] [address] Jessa Gilliland ANP [address] [place] [address] documented as of this encounter Visit Diagnoses Diagnosis Restless leg syndrome Restless legs syndrome (RLS) documented in this encounter Additional Health Concerns Assessment Noted Time PHQ-9 Depression Total Score: 6 10/15/19 24 3:04 PM EDT documented as of this encounter Care Teams Tax Advisor Relationship Specialty Start Date End Date Jessa Gilliland ANP [address] [place] [address] PCP - General Family Medicine 12/20/19 documented as of this encounter
--- OUTSIDE RECORDS SUMMARY | 2024-11-03 11:45 | XMS_ITS | Encounter Summary ---
Author Organization [employer] Address [address] [place] [address] 7 [place] [address] Care Team Providers Care Software Support Analyst Name Role Phone Jessa Gilliland Primary Care Provider [phone] Reason for Referral * Imaging (Routine) - Closed Specialty Diagnoses / Procedures Referred By Angie zafar Referred To Contact Radiology Diagnoses Chronic hepatitis C without hepatic coma (CMS/HCC) Procedures US Abdomen Comp w elastography Jessa Gilliland ANP 230 [place] [address] Phone: tel: fax: Referral ID Status Reason Start Date Expiration Date Visits Re quested Visits Authorized [id number] Closed 03/03/2023 03/02/2024 1 1 Encounter Details Date Type Department Care Team (Late st Contact Info) Description 03/03/2023 Orders Only [facility] MED[facility] [address] [place] [address] Berta Lilly RN [address] [place] [address] Chronic hepatitis C without hepatic coma (CMS/HCC) Social History Tobacco Use Types Packs/Day [...] Description 11/21/2024 9:30 AM EDT Clinical Support [address] [address] 01/05/2025 9:30 AM EST Office Visit [address] [address] Jessa Gilliland ANP [address] [place] [address] Scheduled Orders Name Type Priority Associated Diagnoses Orde r Schedule US Abdomen Comp w elastography Imaging Routine Chronic hepatitis C without hepatic coma (CMS/HCC) Expected: 03/03/2023 (Approximate), Expires: 03/03/2024 documented as of this encounter Visit Diagnoses Diagnosis Chronic hepatitis C without hepatic coma (CMS/HCC) documented in this encounter Care Teams Software Support Analyst Relationship Specialty Start Date End Date Jessa Gilliland ANP [address] [place] [address] PCP - General Family Medicine 12/20/19 documented as of this encounter
--- OUTSIDE RECORDS SUMMARY | 2024-11-03 11:45 | XMS_ITS | Clinical Summary ---
Author Organization [facility] Address [address] [place] [address] Care Team Providers Care Housekeeper Head Name Role Phone Unavailable Primary Care Provider Unavailabl e Allergies Active Allergy Reactions Criticality Noted Date Comments Other 07/02/2021 Patient states he has an allergy but he doesn't know what it is Medications Medication Sig Dispensed Refills Start Date End Date Status amLODIPine (NORVASC) tablet 5 mgIndications:unsure dosage Take 5 mg by mouth daily. 0 Active carvedilol (COREG) 6.25 MG tabletIndications:unsu re dose Take by mouth 2 (two) times a day with meals. 0 Active buprenorphine HCl-naloxone HCl 2-0.5 mg (SUBOXONE) 2-0.5 MG FILM sublingual film Place 1 each under the tongue 2 (two) times a day. 0 Active Active Problems No known active problems Social History Tobacco Use Types Packs/Day Years Used Date Smoking Tobacco: Unknown Alcohol Use Standard Drinks/Week Comments Yes 0 (1 standard drink = 0.6 oz pur e alcohol) Sex and Gender Information Value Date Recorded Sex Assigned at Male 07/02/2021 3:25 PM EDT Gender Identity Not on file Sexual Orientation Not on file Job Start Date Occupation Industry Not on file Not on file Not on file Last Filed Vital Signs Vital Sign Reading Time Taken Comments Blood Pressure 146/107 07/02/2021 4:55 PM EDT Pulse 95 07/02/2021 4:55 PM EDT Temperature 36.4 C (97.6 F) 07/02/2021 4:55 PM EDT Respiratory Rate 16 07/02/2021 6:03 PM EDT Oxygen Saturation 95% 07/02/2021 4:55 PM EDT Inhaled Oxygen Concentration - - Weight 90.7 kg (200 lb) 07/02/2021 3:26 PM EDT Height 172.7 cm (5' 8 ) 07/02/2021 3:26 PM EDT Body Mass Index 30.41 07/02/2021 3:26 PM EDT Plan of Treatment Not on file
--- OUTSIDE RECORDS SUMMARY | 2024-11-03 11:45 | XMS_ITS | Encounter Summary ---
Author Organization [employer] Address [address] [place] [address] 7t [place] [address] Care Team Providers Care Hl7 Interface Developer Name Role Phone Jessa Gilliland Primary Care Provider [phone] Reason for Visit * Reason Comments Med Change Request Encounter Details Date Type Department Care Team ([facility] st Contact Info) Description 11/21/2023 Refill [facility] MED[facility]INE [address] [place], [place] [phone] Jessa Gilliland ANP [address] [place], [place] [phone] Restless leg syndrome Social History Tobacco Use [...] Description 11/21/2024 9:30 AM EDT Clinical Support [address] [address] 01/05/2025 9:30 AM EST Office Visit [address] [address] Jessa Gilliland ANP [address] [place] [phone] documented as of this encounter Visit Diagnoses Diagnosis Restless leg syndrome Restless legs syndrome (RLS) documented in this encounter Additional Health Concerns Assessment Noted Time PHQ-9 Depression Total Score: 6 10/15/19 24 3:04 PM EDT documented as of this encounter Care Teams Hl7 Interface Developer Relationship Specialty Start Date End Date Jessa Gilliland ANP [address] [place] [phone] PCP - General Family Medicine 12/20/19 documented as of this encounter
[2024-11-03 13:51] LABS: Hemoglobin A1C 171.4167 umol/L; Total Hemoglobin (HGBA1C) 4067.3057 umol/L
[2024-11-03 14:02] LABS: Alanine Aminotransferase 122 U/L (0-40); Albumin Level 4.0 g/dL (3.5-5.0); Alkaline Phosphatase 100 U/L (39-117); Anion Gap 13 (12-20); Aspartate Amino Transferase 109 U/L (5-37); Blood Urea Nitrogen 22 mg/dL (9-16); Calcium 9.3 mg/dL (8.4-10.2); Carbon Dioxide 25 mmol/L (22-29); Chloride 107 mmol/L (96-108); Cholesterol 224 mg/dL (<200); Estimated Glomerular Filt Rate 45; HDL Cholesterol 51 mg/dL (>40); Potassium 3.6 mmol/L (3.3-5.1); Sodium 141 mmol/L (135-145); Total Protein 7.3 g/dL (6.5-8.0); Triglycerides 130 mg/dL (<150)
[2024-11-03 14:11] LABS: Prostate Specific Antigen 27.22 ng/mL (<0.05-4.0)
[2024-11-04 15:55] LABS: HCV Log PCR 5.58 Log IU/mL (NOT DETECTED); HepC Viral Load 381000 IU/mL (NOT DETECTED)
== END 2024-11-03 10:25 | disposition home or self-care (01) ==
LOC: HO.HHCL 10:24
PROVIDERS: PCP Nurse Practitioner Primary Care; Visit Provider Nurse Practitioner Primary Care
DX: Z12.5 Encounter for screening for malignant neoplasm of prostate (principal); I10 Essential (primary) hypertension; B18.2 Chronic viral hepatitis C; M54.41 Lumbago with sciatica, right side; M54.42 Lumbago with sciatica, left side; G89.29 Other chronic pain; R73.01 Impaired fasting glucose; R97.20 Elevated prostate specific antigen [PSA]
CPT/HCPCS: 36415; 72100; 80053; 80061; 83036; 84153; 87522

== ENCOUNTER → 2024-11-03 11:04 | Outpatient (BNV) | payer OTHER, SELFPAY | PROVIDERS: PCP Nurse Practitioner Primary Care; Visit Provider Radiology Diagnostic Radiology | DX: M47.817 Spondylosis without myelopathy or radiculopathy, lumbosacral region (principal) | CPT/HCPCS: 72100 ==

== ENCOUNTER 2024-11-09 11:25 | Outpatient (REF) | payer OTHER, SELFPAY ==
--- OUTSIDE RECORDS SUMMARY | 2024-11-03 09:00 | XMS_ITS | Encounter Summary ---
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 Name Role Phone Mia Cowan Primary Care Provider [phone] Reason for Referral * Consultation (Routine) - Closed Specialty Diagnoses / Procedures Referred By Angie zafar Referred To Contact Cardiology Diagnoses Cardiomyopathy, unspecified type (CMS/HCC) Cardiac defibrillator in situ Mitral valve insufficiency, unspecified etiology Mia Cowan ANP [address] [place] [address] Phone: tel: fax: Landon Sage MD [address] [place] [address] Phone: tel: fax: Referral ID Status Reason Start Date Expiration Date V isits Requested Visits Authorized [id number] Closed Specialty Services Required 11/03/2024 11/03/2025 1 1 * Consultation (STAT) - Closed Specialty Diagnoses / Procedures Referred By Angie zafar Referred To Contact Urology Diagnoses Elevated PSA, greater than or equal to 20 ng/ml Mia Cowan ANP [address] [place] [address] Phone: tel: fax: [facility] [address] [place] [address] [place] [address] Phone: tel: fax: Referral ID Status Reason Start Date Expiration Date V isits Requested Visits Authorized [id number] Closed Specialty Services Required 11/03/2024 11/03/2025 1 1 Reason for Visit * Reason Comments CHW - Office Visit Encounter Details Date Type Department Care Team (Latest Contact Info) Description 11/03/2024 9:00 AM EDT Office Visit [facility] [address] [place] [address] Mia Cowan ANP [address] [place] [address] Cardiomyopathy, unspecified type (CMS/HCC) (Primary Dx); Cardiac defibrillator in situ; Chronic hepatitis C without hepatic coma (CMS/HCC); Smoker; Impaired fasting glucose; Elevated PSA, greater than or equal to 20 ng/ml; Primary hypertension; Mitral valve insufficiency, unspecified etiology; Screening for malignant neoplasm of colon; Screening for colon cancer; Chronic midline low back pain with bilateral sciatica; Restless leg syndrome; Stage 3a chronic kidney disease (CMS/HCC) Social History Tobacco Use Types Packs/Day Years Used Date Smoking Tobacco: Former Cigarettes 0.3 0.5 Passive Smoke Exposure: Past Tobacco Cessation:Counseling Given: Not Answered Alcohol Use Standard Drinks/Week Comments Yes 0 (1 standard drink = 0.6 oz pur e alcohol) Depression Answer Date Recorded Patient Health Questionnaire-9 Score 9 11/03/2024 Patient Health Questionnaire-9 Score 9 11/03/2024 Last PHQ-9: Questionnaire Data Not on file 0 11/03/2024 Housing Stability Answer Date Recorded What is your housing situation today? I do not have housing (Staying with others, in a hotel, in a chcf, living outside on the street, on a beach, in a car, or in a park 11/03/[address] you li ve. Do you have problems with any of the following? Pests such as bugs, ants, or mice 11/03/2024 Food Insecurity Answer Date Recorded Within the past 12 months, y ou worried that your food would run out before you got money to buy more: Sometimes True 2024 Within the past 12 months,th e food you bought just didn't last and you didn't have enough money to get more: Sometimes True 11/03/2024 Transportation Answer Date Recorded In the past 12 months, has l ack of transportation kept you from medical appts, meetings, work or from getting things needed for daily living? No 11/03/2024 Utilities Answer Date Recorded In the past 12 months, has t he electric, gas, oil or water company threatened to shut off services in your home? No 11/03/2024 Depression Answer Date Recorded Patient Health Questionnaire-2 Score 0 11/03/2024 Internet Access Answer Date Recorded Internet Access Q1 Yes 11/03/2024 Internet Access Q2 Not on file 11/03/2024 Sex and Gender Information Value Date Recorded Sex Assigned at Male 12/30/2021 10:15 AM EDT Legal Sex Male 10:15 AM EDT Gender Identity Male 12/30/2021 10:15 AM EDT Sexual Orientation Straight 12/30/2021 10 :15 AM EDT documented as of this encounter Last Filed Vital Signs Vital Sign Reading Time Taken Comments Blood Pressure 140/102 11/03/2024 9:26 AM EDT Pulse 110 11/03/2024 9:26 AM EDT Temperature 36.2 C (97.1 F) 11/03/2024 9:26 AM EDT Respiratory Rate 16 11/03/2024 9:26 AM EDT Oxygen Saturation 99% 11/03/2024 9:26 AM EDT Inhaled Oxygen Concentration - - Weight 85.3 kg (188 lb) 11/03/2024 9:26 AM EDT Height - - Body Mass Index 30.34 07/29/2024 11:12 AM EDT documented in this encounter Functional Status * Over the past 2 weeks, how often have you been bothered by any of the following problems? Question Answer Date of Assessment Author Patient Health Questionnaire -2 Score 0 11/03/2024 10:15 AM EDT Liz Monteiro MA * Little interest or pleasure in doing things Answer Date of Assessment Author Not at all 11/03/2024 10:15 AM EDT Liz Monteiro MA * Feeling down, depressed, or hopeless Answer Date of Assessment Author Not at all 11/03/2024 10:15 AM EDT Liz Monteiro MA * Trouble falling or staying asleep, or sleeping too much Answer Date of Assessment Author Nearly every day 11/03/2024 10:15 AM EDT Liz Monteiro MA * Feeling tired or having little energy Answer Date of Assessment Author Nearly every day 11/03/2024 10:15 AM EDT Liz Monteiro MA * Poor appetite or overeating Answer Date of Assessment Author Several days 11/03/2024 10:15 AM EDT Liz Monteiro MA * Feeling bad about yourself - or that you are a failure or have let yourself or your family down Answer Date of Assessment Author Not at all 11/03/2024 10:15 AM EDT Liz Monteiro MA * Trouble concentrating on things, such as reading the newspaper or watching television Answer Date of Assessment Author Several days 11/03/2024 10:15 AM EDT Liz Monteiro MA * Moving or speaking so slowly that other people could have noticed? Or the opposite - being so fidgety or restless that you have been moving around a lot more than usual. Answer Date of Assessment Author Several days 11/03/2024 10:15 AM EDLiz Dudley MA * Thoughts that you would be better off or hurting yourself in some way Answer Date of Assessment Author Not at all 11/03/2024 10:15 AM EDLiz Dudley MA * Patient Health Questionnaire-9 Score Answer Date of Assessment Author 9 11/03/2024 10:15 AM EDT Liz Monteiro MA * How difficult have these problems made it for you to do your work, take care of things at home, or get along with other people? Answer Date of Assessment Author Not difficult at all 11/03/2024 10:15 AM EDT Liz Mccain MA documented as of this encounter Progress Notes * DIANE Mcadams - 11/03/2024 9:00 AM EDT Subjective Patient ID: Pancho Hernandez is a 59 y.o. male who presents for follow-up. HPI PMH HTN, HCV, Mitral valve regurg, cardiomyopathy, IFG, chronic low back pain, depression, CKD, smoking, OUD in remission no longer of OBAT Here today w/ Shante his daughter who pt wishes to have present and information shared Patient was discharged from [facility] urology for not complying with follow-up plan. Then he was re-accepted into 01/2024 but then lost to follow-up again. he was supposed to undergo workup to rule out prostate cancer. Did see urology in past and was toldhe did not have prostate ca - I believe this was 2020 and last note I can locate in record is initial visit w/ [facility]. Still having scrotal swelling as well that he says was also evaluated also by urology in past. US ordered Mar 2023 not yet obtained. Last urology visit he was recommended prostate MRI and bx. CRC screening: elects cologuard Former smoker Review of Systems Constitutional: Negative for chills and fever. HENT: Negative for sore throat. Eyes: Negative for photophobia and visual disturbance. Respiratory: Negative for cough, shortness of breath and wheezing. Cardiovascular: Negative for chest pain. Gastrointestinal: Negative for abdominal pain, blood in stool, constipation and diarrhea. Endocrine: Negative for polydipsia, polyphagia and polyuria. Genitourinary: Negative for dysuria. Musculoskeletal: Positive for arthralgias and back pain. Neurological: Positive for dizziness and weakness. Negative for numbness. Psychiatric/Behavioral: Positive for sleep disturbance. +nocturia, urinary hesitancy Objective BP (!) 140/102 (BP Location: Left arm, Patient Position: Sitting, BP Cuff Size: Adult) Pulse 110 Temp 97.1 ??F (36.2 ??C) (Oral) Resp 16 Wt 188 lb (85.3 kg) SpO2 99% BMI 30.34 kg/m?? 160/110 on recheck HR 104 Physical Exam Constitutional: General: He is not in acute distress. Appearance: Normal appearance. He is not ill-appearing. HENT: Head: Normocephalic and atraumatic. Eyes: General: No scleral icterus. Extraocular Movements: Extraocular movements intact. Pupils: Pupils are equal, round, and reactive to light. Cardiovascular: Rate and Rhythm: Tachycardia present. Heart sounds: No murmur heard. Pulmonary: Effort: Pulmonary effort is normal. No accessory muscle usage or respiratory distress. Neurological: Mental Status: He is alert and oriented to person, place, and time. Gait: Gait normal. Psychiatric: Mood and Affect: Mood is anxious. Behavior: Behavior normal. Assessment/Plan Diagnoses and all orders for this visit: Pt lost to follow-up here and at specialist offices but daughter assures me she is involved now andwill get him to appts. Reviewed w pt importance of this and especially living in [facility] where we do not have unlimited specialist availability. Cardiomyopathy, unspecified type (CMS/HCC) Need cards notes - none in [facility], not [facility] per their office. I called around and he wasseen at [facility] , last 08/2023. They will fax over last visit note. LAURA Cedillo Re-start: - carvedilol (Coreg) 12.5 MG tablet; Take 1 tablet (12.5 mg) by mouth 2 times daily. Cardiac defibrillator in situ Chronic hepatitis C without hepatic coma (CMS/HCC) - Hepatitis C Viral RNA, Quantitative, Real-Time PCR; Future Smoker Quit. Clarify hx at follow-up for LDCT consideration. Impaired fasting glucose Lifestyle recommendations: be as active as able, ideally exercise 150min moderate intensity or 75min vigorous intensity weekly; increase intake of vegetables, fruits, whole grains, fish. Try to minimize intake of sugary or greasy food and drink. Use olive oil or vegetable, peanut, canola, or similar oil for cooking. Decrease or stop drinking alcohol if you drink, quit/decrease smoking if you smoke. - Lipid Panel, Standard; Future - Hemoglobin A1c; Future Elevated PSA, between 10 and less than 20 ng/ml Stressed w/ pt importance of follow-up and prostate ca work up. Will refer again to [facility] - was supposed to get prostate MRI and bx per notes from 11/2023. Now he has transportation and Tangela is involved w/ care and assures me they will go to appts as referred. - PSA,Total; Future Primary hypertension Above goal </= 130/80. Continue to encourage low salt diet, regular exercise, home BP monitoring, compliance with medications. HTN: BP far above goal, pt anxious but otherwise asymptomatic. Needs home BP cuff. Will re-start coreg until cards follow-up. HTN meds at [facility]: Amlodipine last filled 10/22, Dr. Cedillo - CONTINUE Carvedilol last filled - no record in [facility] - RE-START Hydralazine 50mg last filled 10/22 90d, Dr. eCdillo - CONTINUE Lasix - no record in [facility] Lisinopril 40mg - no record in [facility] Call clinic if BP is frequently >150/90 Go to ED/call 911 if > 170/100 and having sx such as ELIZABETH, visual changes, chest pain, SOB Last renal function: Lab Results Component Value Date GLUCOSE 106 11/03/2024 NA 141 11/03/2024 K 3.6 11/03/2024 CO2 25 11/03/2024 CL 107 11/03/2024 BUN 22 (H) 11/03/2024 CREATININE 1.60 (H) 11/03/2024 EGFR 45 11/03/2024 Lab Results Component Value Date MICROALBCREA 13 02/20/2020 Lab Results Component Value Date MICROALBCREU 75.0 (H) 10/16/2023 Estimated Creatinine Clearance: 51.5 mL/min (A) (by C-G formula based on SCr of 1.6 mg/dL (H)). - Comprehensive Metabolic Panel; Future - Albumin, Random Urine W/Creatinine; Future - Blood Pressure kit; 1 each 2 times daily. - carvedilol (Coreg) 12.5 MG tablet; Take 1 tablet (12.5 mg) by mouth 2 times daily. Mitral valve insufficiency, unspecified etiology Screening for malignant neoplasm of colon Screening for colon cancer - Cologuard?? colon cancer screening Chronic midline low back pain with bilateral sciatica Will check XR but - will probaby need MRI, pt has claustrophobia. Will need open MRI. Declines PT Re-start gabapentin pending renal labs for back pain and RLS - XR Lumbar Spine 2-3 Views; Future Other orders - Tdap vaccine greater than or equal to 7 years old IM - Pneumococcal conjugate vaccine 20-valent IM 11/04/24 Addendum HCV VL high, per daughter pt would like to get tx'd, will place referral to HCV team. Office Visit on 11/03/2024 Component Date Value Ref Range Status Prostate Specific Antigen 11/03/2024 27.22 (H) <0.05 - 4.0 ng/mL Final PSA methodology: Olivo Alinity i ChemiluminescentMicroparticle Immunoassay (CMIA) Triglycerides 11/03/2024 130 <150 mg/dL Final Desirable Triglyceride: less than 150 mg/dLBorderline High Triglyceride 150-199 mg/dLHigh Triglyceride: 200-499 mg/dLVery High Triglyceride: greater than or equal to 5OO mg/dL Cholesterol 11/03/2024 224 (H) <200 mg/dL Final Desirable Cholesterol: less than 200 mg/dLBorderline High Cholesterol: 200-239 mg/dLHigh Cholesterol: greater than 239 mg/dL LDL Cholesterol Calculated 11/03/2024 147 (H) <100 mg/dL Final Desirable LDL: less than 100 mg/dLNear Optimal/Above Optimal LDL: 110-129 mg/dLBorderline High LDL:130-159 mg/dLHigh LDL: 160-189 mg/dLVery High LDL: greater than or equal to 190 mg/dL HDL Cholesterol 11/03/2024 51 >40 mg/dL Final Desirable HDL: greater than 40 mg/dL Note: This HDL assay may give artificially low results in patients with liver disease. Sodium 11/03/2024 141 135 - 145 mmol/L Final Potassium 11/03/2024 3.6 3.3 - 5.1 mmol/L Final Chloride 11/03/2024 107 96 - 108 mmol/L Final Carbon Dioxide 11/03/2024 25 22 - 29 mmol/L Final Anion Gap 11/03/2024 13 12 - 20 Final Urea Nitrogen (BUN) 11/03/2024 22 (H) 9 - 16 mg/dL Final Creatinine, Serum 11/03/2024 1.60 (H) 0.5 - 1.4 mg/dL Final Estimated Glomerular Filt Rate 11/03/2024 45 Final Chronic Kidney Disease: Estimated GFR < 60 mL/min/1.53i6Hvjwvt Kidney Disease: Estimated GFR < 15 mL/min/1.73m2 Glucose 11/03/2024 106 60 - 115 mg/dL Final Calcium 11/03/2024 9.3 8.4 - 10.2 mg/dL Final Bilirubin, Total 11/03/2024 0.5 0.0 - 1.0 mg/dL Final Aspartate Amino Transferase 11/03/2024 109 (H) 5 - 37 U/L Final Alanine Aminotransferase 11/03/2024 122 (H) 0 - 40 U/L Final Total Protein 11/03/2024 7.3 6.5 - 8.0 g/dL Final Albumin Level 11/03/2024 4.0 3.5 - 5.0 g/dL Final Alkaline Phosphatase 11/03/2024 100 39 - 117 U/L Final Hepatitis C Viral Load 11/03/2024 433272 (A) NOT DETECTED IU/mL Final HCV Log PCR 11/03/2024 5.58 (A) NOT DETECTED Log IU/mL Final For additional information, please refer tohttp://education.Owtware/faq/GYF24d9(This link is being provided for informational/educational purposes only.)THIS TEST WAS PERFORMED AT:[facility] [place] [phone] CARLISLE MD Hemoglobin A1c 11/03/2024 6.0 <6.0 % Final Hemoglobin A1C Reference Range Adults: 4.8 - 6.0 % Non diabetic: < 6.0 % Goal: < 7.0 %Additional Action Suggested: > 8.0 %Note: Hemoglobin A1c results are invalid for patients with abnormalamounts of HbF. Blood transfusions may impact the HbA1c concentration in the patient sample. Estimated Average Glucose 11/03/2024 126 mg/dL Final eAG = Estimated average glucose which is %A1C expressed asaverage glucose, using the formula of the P9Z-NuityciXkjmipo Glucose study (ADAG), Diabetes Care, Vol.31,#8,Sep. 2007 documented in this encounter Plan of Treatment Upcoming Encounters Date Type Department Care Team (Late st Contact Info) Description 11/21/2024 9:30 AM EDT Clinical Support [facility]INE [address] [place] [phone] 01/05/2025 9:30 AM EST Office Visit [facility] [address] [place] [phone] Mia Cowan ANP [address] [place] [phone] Scheduled Orders Name Type Priority Associated Diagnoses Orde r Schedule Albumin, Random Urine W/Creatinine Lab Routine Primary hypertension Expected: 11/03/2024 (Approximate), Expires: 11/03/2025 Cologuard colon cancer screening Lab Routine Screening for colon cancer Ordered: 11/03/2024 Scheduled Referrals Name Type Priority Associated Diagnoses Orde r Schedule Referral to Urology Outpatient Referral STAT Elevated PSA, greater than or equal to 20 ng/ml Expected: 11/03/2024 (Approximate), Expires: 11/03/2025 Referral to Cardiology Outpatient Referral Routine Cardiomyopathy, unspecified type (CMS/HCC) Cardiac defibrillator in situ Mitral valve insufficiency, unspecified etiology Expected: 11/03/2024 (Approximate), Expires: 11/03/2025 documented as of this encounter Procedures Procedure Name Priority Date/Time Associated Diagnosis Comments HEPATITIS C VIRAL RNA, QUANTITATIVE, REAL-TIME PCR Routine 11/03/2024 10:58 AM EDT Chronic hepatitis C without hepatic coma (CMS/HCC) PSA, TOTAL Routine 11/03/2024 10:58 AM EDT Elevated PSA, greater than or equal to 20 ng/ml HEMOGLOBIN A1C Routine 11/03/2024 10:58 AM EDT Impaired fasting glucose LIPID PANEL, STANDARD Routine 11/03/2024 10:58 AM EDT Impaired fasting glucose COMPREHENSIVE METABOLIC PANEL Routine 11/03/2024 10:58 AM EDT Primary hypertension XR LUMBAR SPINE 2-3 VIEWS Routine 11/03/2024 10:28 AM EDT Chronic midline low back pain with bilateral sciatica documented in this encounter Results * Hemoglobin A1c (11/03/2024 10:58 AM EDT) Hemoglobin A1c 6.0 <6.0 % [facility] Comment:Hemoglobin A1C Refer ence Range Adults: 4.8 - 6.0 % Non diabetic: < 6.0 % Goal: < 7.0 %Additional Action Suggested: > 8.0 %Note: Hemoglobin A1c results are invalid for patients with abnormal amounts of HbF. Blood transfusions may impact the HbA1c concentration in the patient sample. Estimated Average Glucose 126 mg/dL [facility] Comment:eAG = Estimated ave rage glucose which is %A1C expressed asaverage glucose, using the formula of the G7H-XxqdieoXkpzgro Glucose study (ADAG), Diabetes Care, Vol.31,#8,Sep. 2007 Blood Venous blood specimen / Unknown 11/03/2024 10:58 AM EDT 11/03/2024 1:28 PM EDT Mia Cowan [facility] BLOOD ORDERABLES Final Resul t Performing Organization Address [facility] Co de Phone Number [facility] [address] [place] [phone] * (ABNORMAL) Hepatitis C Viral RNA, Quantitative, Real-Time PCR (11/03/2024 10:58 AM EDT) [facility] Hepatitis C Viral Load 724375(A) NOT DETECTED IU/mL [facility] HCV Log PCR 5.58(A) NOT DETECTED Log IU/mL [facility] Comment:For additional infor adriana, please refer tohttp://education.Owtware/faq/JTP49a5(This link is being provided for informational/educational purposes only.)THIS TEST WAS PERFORMED AT:[facility] [place] [phone] CARLISLE MD Blood 11/03/2024 10:5 8 AM EDT 11/03/2024 1:28 PM EDT Mia Cowan [facility] BLOOD ORDERABLES Final Resul t Performing Organization Address [facility] de Phone Number [facility] [address] [place] [phone] * (ABNORMAL) Comprehensive Metabolic Panel (11/03/2024 10:58 AM EDT) [facility] Sodium 141 135 - 145 mmol/L [facility] Potassium 3.6 3.3 - 5.1 mmol/L [facility] Chloride 107 96 - 108 mmol/L [facility] Carbon Dioxide 25 22 - 29 mmol/L [facility] Anion Gap 13 12 - 20 [facility] Urea Nitrogen (BUN) 22(H) 9 - 16 mg/dL [facility] Creatinine, Serum 1.60(H) 0.5 - 1.4 mg/dL [facility] Estimated Glomerular Filt Rate 45 [facility] Comment:Chronic Kidney Disea se: Estimated GFR < 60 mL/min/1.20t7Qqdvln Kidney Disease: Estimated GFR < 15 mL/min/1.73m2 Glucose 106 60 - 115 mg/dL [facility] Calcium 9.3 8.4 - 10.2 mg/dL [facility] Bilirubin, Total 0.5 0.0 - 1.0 mg/dL [facility] Aspartate Amino Transferase 109(H) 5 - 37 U/L [facility] Alanine Aminotransferase 122(H) 0 - 40 U/L [facility] Total Protein 7.3 6.5 - 8.0 g/dL [facility] Albumin Level 4.0 3.5 - 5.0 g/dL [facility] Alkaline Phosphatase 100 39 - 117 U/L [facility] Blood Venous blood specimen / Unknown 11/03/2024 10:58 AM EDT 11/03/2024 1:28 PM EDT Mia Cowan [facility] BLOOD ORDERABLES Final Resul t [facility] [address] [place] [phone] * (ABNORMAL) Lipid Panel, Standard (11/03/2024 10:58 AM EDT) Triglycerides 130 <150 mg/dL [facility] Comment:Desirable Triglyceri de: less than 150 mg/dLBorderline High Triglyceride 150-199 mg/dLHigh Triglyceride: 200-499 mg/dLVery High Triglyceride: greater than or equal to 5OO mg/dL Cholesterol 224(H) <200 mg/dL [facility] Comment:Desirable Cholestero l: less than 200 mg/dLBorderline High Cholesterol: 200-239 mg/dLHigh Cholesterol: greater than 239 mg/dL LDL Cholesterol Calculated 147(H) <100 mg/dL [facility] Comment:Desirable LDL: less than 100 mg/dLNear Optimal/Above Optimal LDL: 110- 129 mg/dLBorderline High LDL: 130-159 mg/dLHigh LDL: 160-189 mg/dLVery High LDL: greater than or equal to 190 mg/dL HDL Cholesterol 51 >40 mg/dL [facility] Comment:Desirable HDL: great er than 40 mg/dL Note: This HDL assay may give artificially low results in patients with liver disease. Blood Venous blood specimen / Unknown 11/03/2024 10:58 AM EDT 11/03/2024 1:28 PM EDT Mia Cowan [facility] BLOOD ORDERABLES Final Resul t Performing Organization Address [facility] Co de Phone Number [facility] [address] [place] [phone] * (ABNORMAL) PSA,Total (11/03/2024 10:58 AM EDT) Prostate Specific Antigen 27.22(H ) <0.05 - 4.0 ng/mL [facility] Comment:PSA methodology: Danielle Sanchez i ChemiluminescentMicroparticle Immunoassay (CMIA) Blood Venous blood specimen / Unknown 11/03/2024 10:58 AM EDT 11/03/2024 1:28 PM EDT us Mia Cowan [facility] BLOOD ORDERABLES Final Resul t Performing Organization Address [facility] Co de Phone Number [facility] [address] [place] [phone] * XR Lumbar Spine 2-3 Views (11/03/2024 10:28 AM EDT) Anatomical Region Laterality Modality Spine, L-spine Radiographic Amelie ging 11/03/2024 10:2 8 AM EDT Narrative 11/03/2024 1:29 PM EDT [address] [address] XRay Report Signed Patient: Pancho Hernandez MR#: [id number] 53 : 1965 Acct:[id number] Age/Sex: 59 / M ADM Date: 11/03/24 Loc: [facility] Attending Dr: Mia Cowan [employer] Ordering Physician: MIA COWAN NP Date of Service: 11/03/24 Procedure(s): XR lumbar spine 2-3V Accession Number(s): [id number] cc: MIA COWAN NP Reason for Exam: atraumatic chronic back pain EXAMINATION: XR LUMBOSACRAL SPINE CLINICAL INFORMATION: atraumatic chronic back pain COMPARISON: None available. TECHNIQUE: Three views of the lumbosacral spine. FINDINGS: No scoliosis. Normal lordosis. No subluxations. No fracture, compression deformity, or suspicious bone lesion. Severe disc degeneration L5-S1 with disc vacuum phenomenon and marginal disc osteophytic spurring. There is mild disc degeneration at the other levels. Normal facet alignment. There is mild degenerative facet changes L4-S1. Soft tissues demonstrate mild vascular calcifications. XR/XR lumbar spine 2-3V IMPRESSION: 1. No acute findings of the lumbar spine. 2. Spondylosis mainly confined to L5-S1. Electronically signed by: Ramirez Rmaos MD 11/03/2024 01:27 PM EDT Dictated By: Ramirez Ramos MD Signed By: <Electronically signed by Ramirez Ramos MD in OV> 11/03/24 1327 DD/ 1028 TD/TT: 11/03/24 1100 Service Manager: Procedure Note Donotuseinterpreter, Image - 11/03/2024 [facility] [address] [place] [id number] XRay Report Signed Patient: Radames HernandezR#: [id number] 53 : 1965Acct:[id number] Age/Sex: 59 / MADM Date: 11/03/24 Loc: [facility] Attending Dr: Mia Cowan SUPERVISOR [employer] Ordering Physician: MIA COWAN NP Date of Service: 11/03/24 Procedure(s): XR lumbar spine 2-3V Accession Number(s): [id number] cc: MIA COWAN SUPERVISOR [employer] Reason for Exam: atraumatic chronic back pain EXAMINATION: XR LUMBOSACRAL SPINE CLINICAL INFORMATION: atraumatic chronic back pain COMPARISON: None available. TECHNIQUE: Three views of the lumbosacral spine. FINDINGS: No scoliosis. Normal lordosis. No subluxations. No fracture, compression deformity, or suspicious bone lesion. Severe disc degeneration L5-S1 with disc vacuum phenomenon and marginal disc osteophytic spurring. There is mild disc degeneration at the other levels. Normal facet alignment. There is mild degenerative facet changes L4-S1. Soft tissues demonstrate mild vascular calcifications. XR/XR lumbar spine 2-3V IMPRESSION: 1. No acute findings of the lumbar spine. 2. Spondylosis mainly confined to L5-S1. Electronically signed by: Ramirez Ramos MD 11/03/2024 01:27 PM EDT RP Workstation: [id number] Dictated By: Ramirez Ramos MD Signed By: <Electronically signed by Ramirez Ramos MD in OV> 11/03/24 1327 DD/ 1028 TD/TT: 11/03/24 1100 Service Manager: Mia CONTRERAS IMG XR PROCEDURES Final Result documented in this encounter Visit Diagnoses Diagnosis Cardiomyopathy, unspecified type (CMS/HCC)- Primary Cardiac defibrillator in situ Chronic hepatitis C without hepatic coma (CMS/HCC) Smoker Tobacco use disorder Impaired fasting glucose Elevated PSA, greater than or equal to 20 ng/ml Primary hypertension Unspecified essential hypertension Mitral valve insufficiency, unspecified etiology Screening for malignant neoplasm of colon Screening for colon cancer Special screening for malignant neoplasms, colon Chronic midline low back pain with bilateral sciatica Restless leg syndrome Restless legs syndrome (RLS) Stage 3a chronic kidney disease (CMS/HCC) documented in this encounter Additional Health Concerns Assessment Noted Time PHQ-9 Depression Total Score: 9 11/04/19 25 10:15 AM EDT documented as of this encounter Care Teams Refrigeration Engine Operator Relationship Specialty Start Date End Date Mia Cowan ANP [address] [place] [phone] PCP - General Family Medicine 12/20/19 documented as of this encounter
[2024-11-09 13:48] LABS: MANUAL DIFF FLAG NO
[2024-11-09 13:57] LABS: INTERNATIONAL NORM RATIO 0.9 (0.9-1.1); Prothrombin Time 9.8 SEC (10.9-12.4)
[2024-11-09 13:58] LABS: Hematocrit 44.4 % (42.0-52.0); Hemoglobin 15.0 g/dl (14.0-18.0); Imm Gran Abs Auto 0.10 X10*3/uL (0.00-0.03); Imm Gran Pct Auto 1.6 % (0.0-0.4); Lymphocytes Absolute Auto 2.0 X10*3/uL (1.2-4.9); Mean Corpuscular HGB Conc 33.8 g/dl (31.0-36.0); Mean Corpuscular Hemoglobin 30.9 pg (27.0-33.0); Mean Corpuscular Volume 91.5 fL (80.0-98.0); NRBC Abs Auto 0.000 X10*3/uL (0.0-0.012); NRBC Pct Auto 0.0 /100WBC (0.0-0.2); Platelet Count 339 X10*3/uL (160-400); Red Blood Count 4.85 X10*6/uL (4.60-5.80); White Blood Count 6.1 X10*3/uL (4.8-10.8)
[2024-11-09 14:21] LABS: Alanine Aminotransferase 129 U/L (0-40); Albumin Level 4.0 g/dL (3.5-5.0); Alkaline Phosphatase 96 U/L (39-117); Aspartate Amino Transferase 94 U/L (5-37); Total Protein 7.2 g/dL (6.5-8.0)
--- OUTSIDE RECORDS SUMMARY | 2024-11-09 14:33 | XMS_ITS | Encounter Summary ---
Author Organization [email or web address] Address [address] [place] [address] 7[address] [place] [address] Care Team Providers Care Night Nurse Name Role Phone Jessa Gilliland Primary Care Provider [phone] Reason for Visit * Reason Comments Med Refill Encounter Details Date Type Department Care Team ([facility] Contact Info) Description 11/07/2022 Refill [facility] MEDICINE [address] [place] [address] [phone] Carlos Whitlock MD [address] [place] [address] [phone] Uncomplicated opioid use Social History Tobacco Use [...] Upcoming Encounters Date Type Department Care Team ([facility] Contact Info) Description 11/21/2024 9:30 AM EDT Clinical Support [facility] [address] [place] [address] [phone] 01/05/2025 9:30 AM EST Office Visit [facility] [address] [place] [address] Jessa Gilliland ANP 230 [place] [address] documented as of this encounter Visit Diagnoses Diagnosis Uncomplicated opioid use documented in this encounter Care Teams Night Nurse Relationship Specialty Start Date End Date Jessa Gilliland ANP [address] [place] [address] PCP - General Family Medicine 12/20/19 documented as of this encounter
--- OUTSIDE RECORDS SUMMARY | 2024-11-09 14:33 | XMS_ITS | Encounter Summary ---
Author Organization [employer] Address [address] [place] [address] 7t [place] [address] Care Team Providers Care Prototype Machine Operator Name Role Phone Jessa Gilliland Primary Care Provider [phone] Encounter Details Date Type Department Care Team (Late st Contact Info) Description 07/28/2023 Telephone [facility] MEDICINE [address] [place] [address] Jessa Gilliland ANP 230 [place] [address] Social History Tobacco Use Types Packs/Day Years [...] Description 11/21/2024 9:30 AM EDT Clinical Support [address] [address] 01/05/2025 9:30 AM EST Office Visit [address] [address] Jessa Gilliland ANP [address] [place] [address] documented as of this encounter Visit Diagnoses Not on filedocumented in this encounter Additional Health Concerns Assessment Noted Time PHQ-9 Depression Total Score: 9 03/10/19 24 10:46 AM EST documented as of this encounter Care Teams Prototype Machine Operator Relationship Specialty Start Date End Date Jessa Gilliland ANP [address] [place] [phone] PCP - General Family Medicine 12/20/19 documented as of this encounter
--- OUTSIDE RECORDS SUMMARY | 2024-11-09 14:33 | XMS_ITS | Clinical Summary ---
Author Organization [facility] Address [address] [place] [phone] Phone Care Team Providers Care Algology Teacher Name Role Phone Unknown, Unknown Primary Care [...] file Medical Devices Not on file Insurance [facility] ONE CARE MEDICARE REPLACEMENT SAMANTHA CORRALES [id number] [facility] MEDICARE [facility]PLACEMENT [facility] MEDIC[facility] REPLACEMENT [facility] MEDICARE REPLACEMENT [facility] CARE MEDICARE REPLACEMENT Member Subscriber Plan / Payer (Ef fective 2018-Present) Name:Pancho Hernandez Relation to Subscriber:Self Name:Pancho Hernandez Payer ID:[id number] (NAIC) Group ID:Not on file Type:Medicare Address: [address] SAMANTHA CORRALES05 [facility] ONE CARE MEDICARE REPLACEMENT Care Teams Algology Teacher Relationship Specialty Start Date End Date Unknown, Unknown, PCP - General 03/10/18 Additional Source Comments The information contained in this document represents components of the legal health record. It is not the complete legal health record.[facility]
--- OUTSIDE RECORDS SUMMARY | 2024-11-09 14:33 | XMS_ITS | Encounter Summary ---
Author Organization [facility] Address [address] [place] [phone] Phone Care Team Providers Care Tankerman Name Role Phone Unknown, Unknown Primary Care Provider Arthur dillon Encounter Details Date Type Department Care Team (Late st Contact Info) Description 10/21/2018 Procedure Pass [facility] [address] [place] [address] Social History Tobacco Use Types Packs/Day Years [...] on filedocumented in this encounter Care Teams Tankerman Relationship Specialty Start Date End Date Unknown, Unknown, PCP - General 03/10/18 documented as of this encounter Additional Source Comments The information contained in this document represents components of the legal health record. It is not the complete legal health record.[facility]
--- OUTSIDE RECORDS SUMMARY | 2024-11-09 14:33 | XMS_ITS | Encounter Summary ---
Author Organization [employer] Address [address] [place] [address] 7t [place] [address] Care Team Providers Care Broomcorn Scraper Name Role Phone Jessa Gilliland Primary Care Provider [phone] Reason for Visit * Reason Comments Med Refill Encounter Details Date Type Department Care Team ([facility] Contact Info) Description 09/12/2022 Refill [facility] MEDICINE [address] [place] [address] [phone] Carlos Whitlock MD [address] [place] [address] [phone] Uncomplicated opioid use Social History Tobacco Use [...] Upcoming Encounters Date Type Department Care Team ([facility] Contact Info) Description 11/21/2024 9:30 AM EDT Clinical Support [facility] MED[facility]INE [address] [place] [address] [phone] 01/05/2025 9:30 AM EST Office Visit [facility] [address] [place] [phone] Jessa Gilliland ANP [address] [place] [address] documented as of this encounter Visit Diagnoses Diagnosis Uncomplicated opioid use documented in this encounter Care Teams Broomcorn Scraper Relationship Specialty Start Date End Date Jessa Gilliland ANP [address] [place] [address] PCP - General Family Medicine 12/20/19 documented as of this encounter
--- OUTSIDE RECORDS SUMMARY | 2024-11-09 14:33 | XMS_ITS | Encounter Summary ---
Author Organization [employer] Address [address] [place] [address] 7 h Floor [place] [phone] Care Team Providers Care Receiver Setter Name Role Phone Jessa Gilliland Primary Care Provider [phone] Reason for Visit * Reason Onset Date Comments chart prep 07/28/2023 Encounter Details Date Type Department Care Team (Late st Contact Info) Description 07/28/2023 Telephone [facility] MEDICINE [address] [place] [address] Jessa Gilliland ANP [address] [place] [address] chart prep Social History Tobacco Use Types [...] Description 11/21/2024 9:30 AM EDT Clinical Support [address] [address] 01/05/2025 9:30 AM EST Office Visit [address] [address] Jessa Gilliland ANP [address] [place] [phone] documented as of this encounter Visit Diagnoses Not on filedocumented in this encounter Additional Health Concerns Assessment Noted Time PHQ-9 Depression Total Score: 9 03/10/19 24 10:46 AM EST documented as of this encounter Care Teams Receiver Setter Relationship Specialty Start Date End Date Jessa Gilliland ANP [address] [place] [phone] PCP - General Family Medicine 12/20/19 documented as of this encounter
--- OUTSIDE RECORDS SUMMARY | 2024-11-09 14:33 | XMS_ITS | Encounter Summary ---
Author Organization [employer] Address [address] [place] [address] 7t [place] [address] Care Team Providers Care Emt/Paramedic Name Role Phone Jessa Gilliland Primary Care Provider [phone] Reason for Visit * Reason Onset Date Comments Call Back Request 08/18/2023 Encounter Details Date Type Department Care Team (Late st Contact Info) Description 08/18/2023 Telephone [facility] MEDICINE [address] [place], [place] [phone] Jessa Gilliland ANP [address] [place] [address] Call Back Request Social History Tobacco Use [...] pain. Declined triage. Please contact pt at [phone] documented in this encounter Plan of Treatment Upcoming Encounters Date Type Department Care Team (Late st Contact Info) Description 11/21/2024 9:30 AM EDT Clinical Support [facility] [address] [place] [address] 01/05/2025 9:30 AM EST Office Visit [facility] [address] [place] [phone] Jessa Gilliland ANP [address] [place] [phone] documented as of this encounter Visit Diagnoses Not on filedocumented in this encounter Additional Health Concerns Assessment Noted Time PHQ-9 Depression Total Score: 9 03/10/19 24 10:46 AM EST documented as of this encounter Care Teams Emt/Paramedic Relationship Specialty Start Date End Date Jessa Gilliland ANP [address] [place] [phone] PCP - General Family Medicine 12/20/19 documented as of this encounter
--- OUTSIDE RECORDS SUMMARY | 2024-11-09 14:34 | XMS_ITS | Clinical Summary ---
Author Organization [employer] Address [address] [facility] [address] [place] [address] Care Team Providers Care Fly Raiser Lockstitch Name Role Phone Mia Cowan Primary Care Provider [phone] Allergies No known active allergies Medications chlorhexidine (Periogard) 0.12 % solution Place 15 mL into mouth between cheek and gum every 12 (twelve) hours. 01/24/20 21 Active hydrALAZINE (Apresoline) 50 MG tablet Take 1 tablet by mouth in the morning, at noon, and at bedtime. Active naloxone (Narcan) 4 mg/0.1 mL nasal spray Administer 4 mg into affected nostril(s) if needed for opioid reversal. May repeat every 2-3 minutes if needed, alternating nostrils, until medical assistance becomes available. Active cyclobenzaprine (Flexeril) 10 MG tablet 1 tablet PO at bedtime prn leg cramps/restles sness. 3 tablet 09/16/19 24 Active cyclobenzaprine (Flexeril) 10 MG tablet 1 tablet PO q8-12 hours prn muscle cramps and restlessness. May cause drowsiness. 15 tablet 09/17/19 24 Active albuterol 108 (90 Base) MCG/ACT inhaler INHALE 2 PUFFS EVERY 4 HOURS IF NEEDED FOR WHEEZING. 18 g 08/23/19 25 Active rOPINIRole (Requip) 0.5 MG tabletIndicatio ns:Restless leg syndrome TAKE 1 TABLET BY MOUTH TWICE A DAY 180 tablet 1 09/24/19 25 Active amLODIPine (Norvasc) 10 MG tablet Take 1 tablet by mouth Once per day. 10/23/19 25 Active Blood Pressure kitIndications: Primary hypertension 1 each 2 times daily. 1 kit 11/04/19 25 2025 Active carvedilol (Coreg) 12.5 MG tabletIndicatio ns:Cardiomyopat hy, unspecified type (CMS/HCC),Prima ry hypertension Take 1 tablet (12.5 mg) by mouth 2 times daily. 60 tablet 2 11/04/19 25 Active gabapentin (Neurontin) 300 MG capsuleIndicati ons:Chronic midline low back pain with bilateral sciatica,Restle ss leg syndrome 1 capsule at bedtime daily for 1 week, then 1 capsule BID for 1 week, then 1 capsule TID 90 capsule 2 11/04/19 25 Active carvedilol (Coreg) 25 MG tablet Take 1 tablet by mouth in the morning and at bedtime. 2024 Discontinued(R eorder (will not trigger notification to Pharmacy)) furosemide (Lasix) 40 MG tablet Take 1 tablet by mouth 1 (one) time each day. 2024 Discontinued(N on-compliance) lisinopril 40 MG tablet Take 1 tablet by mouth 1 (one) time each day. 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 11/08/2024 Overview (11/08/2024): on XR 11/03/24 Prediabetes 11/04/2024 Stage 3a chronic kidney disease 11/04/2024 Elevated PSA, between 10 and less than [...] stable Mitral valve regurgitation 02/18/2021 Smoker 12/26/2011 Hepatitis C 10/27/2011 Chronic low back pain 10/27/2011 [...] Encounters Date Type Department Care Team Description 11/09/2024 Telephone [facility] [address] [place] [address] Mia Cowan ANP NOtes requested 11/08/2024 Orders Only [facility] [address] [place] [address] Fay Beavers, distributor publications hepatitis C without hepatic coma (CMS/HCC) 11/08/2024 Telephone [facility] [address] [place] [address] Fay Beavers, RN 11/07/2024 Telephone [facility] [address] [place] [address] Mia Cowan, DIANE 11/04/2024 Telephone [facility] [address] [place] [address] Lakisha Bose RN Cardiology F/U 11/03/2024 9:00 AM EDT Office Visit [facility] [address] [place] [address] Mia Cowan ANP Cardiomyopathy, unspecified type (CMS/HCC) (Primary Dx); [...] syndrome; Stage 3a chronic kidney disease (CMS/HCC) 11/03/2024 Results Follow-Up [facility] [address] [place] [address] Mia Cowan ANP PSA,Total, Lipid Panel, Standard, Comprehensive Metabolic Panel, Additional followed-up results: 3 11/03/2024 Travel 10/27/2024 Patient Outreach [facility] [address] [place] [phone] Mia Cowan ANP Pre-visit Planning ((Unable to reach for PVP screening, LVM) to be completed in office ) 09/23/2024 Refill [facility] [address] [place] [address] Mia Cowan ANP Restless leg syndrome 08/26/2024 Refill [facility] [address] [place] [address] Mia Cowan ANP Restless leg syndrome 08/20/[address] [address] Radha Petit FNP from Last 3 Months Immunizations Immunization Administration Dates Next Due Hep B, adult 02/27/2010,05/08/2005,04/09/2005 Influenza Injectable Quadriv alant Preservative Free IIV4 MDCK 02/20/2020 Influenza injectable quadriv alent IIV4 with preservative 12/29/2016 Influenza injectable quadriv alent preservative free 03/10/2023,03/22/2021,12/25/2014 Influenza, IIV3, injectable 12/26/2013 Influenza, Split (incl. melissa fied surface antigen) 10/27/2011 MMR 11/19/2000 Moderna Covid-19 Vaccine 12+ 03/22/2021,06/28/19 21,05/30/2020 Pfizer Covid-19 Vaccine 12+ 03/10/2023 Pneumococcal Conjugate [...] with others, in a hotel, in a [place], living outside on the street, on a [...] Description 11/21/2024 9:30 AM EDT Clinical Support [facility] [address] [place] [phone] 01/05/2025 9:30 AM EST Office Visit [facility] [address] [place] [phone] Mia Cowan, DIANE [address] [place] [address] Health Maintenance Due Date Last Done Comments [...] 2024 , 03/22/2021, 02/20/2020, Additional history exists Depression Monitoring 05/03/2025 11/03/2024, 025 Alcohol/Substance Use Screening 07/29/2025 07/29/2024 Disability Screening 07/29/2025 07/29/2024 Diabetes: Hemoglobin A1C 11/03/2025 025, 08/05/2023, 02/20/2020 SDOH Screening 11/03/2025 11/03/2024 Tobacco Screening 11/04/2025 11/04/2024 Lipid Panel 11/03/2029 11/03/2024, 02/20/2020 DTaP/Tdap/Td Vaccines (3 - Td or Tdap) [...] Procedure Name Priority Date/Time Associated Diagnosis Comments HEPATIC FUNCTION PANEL Routine 11/09/2024 11:31 AM EDT Chronic hepatitis C without hepatic coma (CMS/HCC) CBC WITH AUTO DIFFERENTIAL Routine 11/09/2024 11:31 AM EDT Chronic hepatitis C without hepatic coma (CMS/HCC) PROTHROMBIN TIME-INR Routine 11/09/2024 11:31 AM EDT Chronic hepatitis C without hepatic coma (CMS/HCC) HEMOGLOBIN A1C Routine 11/03/2024 10:58 AM EDT Impaired fasting glucose HEPATITIS C VIRAL RNA, QUANTITATIVE, REAL-TIME PCR Routine 11/03/2024 10:58 AM EDT Chronic hepatitis C without hepatic coma (CMS/HCC) COMPREHENSIVE METABOLIC PANEL Routine 11/03/2024 10:58 AM EDT Primary hypertension LIPID PANEL, STANDARD Routine 11/03/2024 10:58 AM EDT Impaired fasting glucose PSA, TOTAL Routine 11/03/2024 10:58 AM EDT Elevated PSA, greater than or equal to 20 ng/ml XR LUMBAR SPINE 2-3 VIEWS Routine 11/03/2024 10:28 AM EDT Chronic midline low back pain with bilateral sciatica HIV 1/2 ANTIGEN/ANTIBODY, FOURTH GENERATION W/RFL Routine 02/03/2023 9:53 AM EST Chronic hepatitis C without hepatic coma (CMS/HCC) from Last 3 Months or Most Recently Relevant to Health Maintenance Results * (ABNORMAL) CBC auto differential (11/09/2024 11:31 AM EDT) White Blood Count 6.1 4.8 - 10.8 X10*3/uL [facility] Red Blood Count 4.85 4.60 - 5.80 X10*6/uL [facility] Hemoglobin 15.0 14.0 - 18.0 g/dl [facility] Hematocrit 44.4 42.0 - 52.0 % [facility] Mean Corpuscular Volume 91.5 80.0 - 98.0 fL [facility] Mean Corpuscular Hemoglobin 30.9 27.0 - 33.0 pg [facility] Mean Corpuscular HGB Conc 33.8 31.0 - 36.0 g/dl [facility] Red Cell Distribution Width 14.3 11.0 - 16.0 % [facility] Platelet Count 339 160 - 400 X10*3/uL [facility] Mean Platelet Volume 11.1 9.4 - 12.4 fL [facility] Neutrophils Percent Auto 48.4 45 - 73 % [facility] Imm Gran Pct Auto 1.6(H) 0.0 - 0.4 % [facility] Lymphocytes Percent Auto 32.9 20 - 40 % [facility] Monocytes Percent Auto 13.5(H) 2 - 11 % [facility] Eosinophils Percent Auto 2.9 0 - 4 % [facility] Basophils Percent Auto 0.7 0 - 2 % [facility] NRBC Pct Auto 0.0 0.0 - 0.2 /100WBC [facility] Neutrophils Absolute Auto 3.0 2.0 - 8.3 x10*3/uL [facility] Imm Gran Abs Auto 0.10(H) 0.00 - 0.03 X10*3/uL [facility] Lymphocytes Absolute Auto 2.0 1.2 - 4.9 X10*3/uL [facility] Monocytes Absolute Auto 0.8 0.1 - 1.2 X10*3/uL [facility] Eosinophils Absolute Auto 0.2 0.0 - 0.4 X10*3/uL [facility] Basophils Absolute Auto 0.0 0.0 - 0.2 X10*3/uL [facility] NRBC Abs Auto 0.000 0.0 - 0.012 X10*3/uL [facility] 11/09/2024 11:3 1 AM EDT 11/09/2024 1:32 PM EDT us Sasha Field MD LAB BLOOD ORDERABLES Final R esult Performing Organization Address City/[facility]/ZIP Co de Phone Number [facility] [address] [place] [phone] * (ABNORMAL) Prothrombin Time-INR (11/09/2024 11:31 AM EDT) Prothrombin Time 9.8(L) 10.9 - 12.4 SEC [facility] INTERNATIONAL NORM RATIO 0.9 0.9 - 1.1 [facility] Comment:INTERNATIONAL NORMAL IZED RATIO (INR) REFERENCE RANGES Reference RangeFor patients not on anticoagulant therapy: 0.9 - 1.1INR ranges for oral anticoagulanttherapy:For prevention and treatment of venous thrombosis and pulmonary embolism: 2.0 - 3.0For acute myocardial infarction with aspirin therapy: 2.0 - 3.0For acute myocardial infarction without aspirin therapy: 3.0 - 4.0For patients with mechanical prosthetic heart valves: 2.5 - 3.5 11/09/2024 11:3 1 AM EDT 11/09/2024 1:32 PM EDT us Sasha Field MD LAB BLOOD ORDERABLES Final R esult Performing Organization Address City/[facility]/ZIP Co de Phone Number [facility] [address] [place] [phone] * (ABNORMAL) Hepatic Function Panel (11/09/2024 11:31 AM EDT) Bilirubin, Total 0.5 0.0 - 1.0 mg/dL [facility] Bilirubin, Direct 0.1 0.0 - 0.5 mg/dL [facility] Aspartate Amino Transferase 94(H) 5 - 37 U/L [facility] Alanine Aminotransferase 129(H) 0 - 40 U/L [facility] Total Protein 7.2 6.5 - 8.0 g/dL [facility] Albumin Level 4.0 3.5 - 5.0 g/dL [facility] Alkaline Phosphatase 96 39 - 117 U/L [facility] 11/09/2024 11:3 1 AM EDT 11/09/2024 1:47 PM EDT us Sasha Field MD LAB BLOOD ORDERABLES Final R esult Performing Organization Address City/[facility]/ZIP Co de Phone Number [facility] [address] [place] [phone] * (ABNORMAL) Hepatitis C Viral RNA, Quantitative, Real-Time PCR (11/03/2024 10:58 AM EDT) Hepatitis C Viral Load 087272(A) NOT DETECTED IU/mL [facility] HCV Log PCR 5.58(A) NOT DETECTED Log IU/mL [facility] Comment:For additional infor adriana, please refer [email or web address].Tradescape/faq/[email or web address](This link is being provided for informational/educational purposes only.)THIS TEST WAS PERFORMED AT:[address] [place] [phone] CARLISLE MD Blood 11/03/2024 10:5 8 AM EDT 11/03/2024 1:28 PM EDT us Mia CONTRERAS LAB BLOOD ORDERABLES Final Resul t Performing Organization Address [facility] Co de Phone Number [facility] [address] [place] [phone] * (ABNORMAL) PSA,Total (11/03/2024 10:58 AM EDT) Prostate Specific Antigen 27.22(H ) <0.05 - 4.0 ng/mL [facility] Comment:PSA methodology: Danielle Sanchez i ChemiluminescentMicroparticle Immunoassay (CMIA) Blood Venous blood specimen / Unknown 11/03/2024 10:58 AM EDT 11/03/2024 1:28 PM EDT us Mia CONTRERAS LAB BLOOD ORDERABLES Final Resul t Performing Organization Address [facility] Co de Phone Number [facility] [address] [place] [phone] * Hemoglobin A1c (11/03/2024 10:58 AM EDT) Hemoglobin A1c 6.0 <6.0 % [facility] Comment:Hemoglobin A1C Refer ence Range Adults: 4.8 - 6.0 % Non diabetic: < 6.0 % Goal: < 7.0 %Additional Action Suggested: > 8.0 %Note: Hemoglobin A1c results are invalid for patients with abnormal amounts of HbF. Blood transfusions may impact the HbA1c concentration in the patient sample. Estimated Average Glucose 126 mg/dL [facility] Comment:eAG = Estimated ave rage glucose which is %A1C expressed asaverage glucose, using the formula of the F7D-UovhqdzNqciucp Glucose study (ADAG), Diabetes Care, Vol.31,#8,Sep. 2007 Blood Venous blood specimen / Unknown 11/03/2024 10:58 AM EDT 11/03/2024 1:28 PM EDT Mia Cowan [facility] LAB BLOOD ORDERABLES Final Resul t Performing Organization Address [facility] Co de Phone Number [facility] [address] [place] [phone] * (ABNORMAL) Lipid Panel, Standard (11/03/2024 10:58 AM EDT) Triglycerides 130 <150 mg/dL [facility] Comment:Desirable Triglyceri de: less than 150 mg/dLBorderline High Triglyceride 150-199 mg/dLHigh Triglyceride: 200-499 mg/dLVery High Triglyceride: greater than or equal to 5OO mg/dL Cholesterol 224(H) <200 mg/dL [facility] Comment:Desirable Cholestero l: less than 200 mg/dLBorderline High Cholesterol: 200-239 mg/dLHigh Cholesterol: greater than 239 mg/dL LDL Cholesterol Calculated 147(H) <100 mg/dL [facility] Comment:Desirable LDL: less than 100 mg/dLNear Optimal/Above Optimal LDL: 110- 129 mg/dLBorderline High LDL: 130-159 mg/dLHigh LDL: 160-189 mg/dLVery High LDL: greater than or equal to 190 mg/dL HDL Cholesterol 51 >40 mg/dL [facility] Comment:Desirable HDL: great er than 40 mg/dL Note: This HDL assay may give artificially low results in patients with liver disease. Blood Venous blood specimen / Unknown 11/03/2024 10:58 AM EDT 11/03/2024 1:28 PM EDT [facility] LAB BLOOD ORDERABLES Final Resul t [facility] [address] [place] [phone] * (ABNORMAL) Comprehensive Metabolic Panel (11/03/2024 10:58 AM EDT) Sodium 141 135 - 145 mmol/L [facility] Potassium 3.6 3.3 - 5.1 mmol/L [facility] Chloride 107 96 - 108 mmol/L [facility] Carbon Dioxide 25 22 - 29 mmol/L [facility] Anion Gap 13 12 - 20 [facility] Urea Nitrogen (BUN) 22(H) 9 - 16 mg/dL [facility] Creatinine, Serum 1.60(H) 0.5 - 1.4 mg/dL [facility] Estimated Glomerular Filt Rate 45 [facility] Comment:Chronic Kidney Disea se: Estimated GFR < 60 mL/min/1.15e8Lnronl Kidney Disease: Estimated GFR < 15 mL/min/1.73m2 Glucose 106 60 - 115 mg/dL [facility] Calcium 9.3 8.4 - 10.2 mg/dL [facility] Bilirubin, Total 0.5 0.0 - 1.0 mg/dL [facility] Aspartate Amino Transferase 109(H) 5 - 37 U/L [facility] Alanine Aminotransferase 122(H) 0 - 40 U/L [facility] Total Protein 7.3 6.5 - 8.0 g/dL [facility] Albumin Level 4.0 3.5 - 5.0 g/dL [facility] Alkaline Phosphatase 100 39 - 117 U/L [facility] Blood Venous blood specimen / Unknown 11/03/2024 10:58 AM EDT 11/03/2024 1:28 PM EDT Mia Cowan ANP LAB BLOOD ORDERABLES Final Resul t Performing Organization Address City/State/[facility] Co de Phone Number [facility] [address] [place] [phone] * XR Lumbar Spine 2-3 Views (11/03/2024 10:28 AM EDT) Anatomical Region Laterality Modality Spine, L-spine Radiographic Amelie ging 11/03/2024 10:2 8 AM EDT Narrative 11/03/2024 1:29 PM EDT [address] [address] XRay Report Signed Patient: Pancho Hernandez MR#: [id number] 53 : 1965 Acct:[id number] Age/Sex: 59 / M ADM Date: 11/03/24 Loc: [facility] Attending Dr: Mia Cowan NP Ordering Physician: MIA COWAN NP Date of Service: 11/03/24 Procedure(s): XR lumbar spine 2-3V Accession Number(s): [id number] cc: MIA COWAN NP Reason for Exam: [...] Ramos MD 11/03/2024 01:27 PM EDT RP Dictated By: Ramirez Ramos MD Signed By: <Electronically signed by Ramirez Ramos MD in OV> 11/03/24 1327 DD/ 1028 TD/TT: 11/03/24 1100 Engineer Intern: Procedure Note Donotuseinterpreter, Image - 11/03/[address] [address] XRay Report Signed Patient: Darshan Hernandez#: [id number] 53 : 1965Acct:[id number] Age/Sex: 59 / MADM Date: 11/03/24 Loc: [facility] Attending Dr: Mia Cowan NP Ordering Physician: MIA COWAN NP Date of Service: 11/03/24 Procedure(s): XR lumbar spine 2-3V Accession Number(s): [id number] cc: MIA COWAN NP Reason for Exam: [...] Ramos MD 11/03/2024 01:27 PM EDT RP Dictated By: Ramirez Ramos MD Signed By: <Electronically signed by Ramirez Ramos MD in OV> 11/03/24 1327 DD/ 1028 TD/TT: 11/03/24 1100 Engineer Intern: us Mia CONTRERAS IMG XR PROCEDURES Final Result * HIV-1/2 Antigen and Antibodies, Fourth Generation, with Reflexes (02/03/2023 9:53 AM EST) HIV AB/AG Nonreactive Nonreactive [facility] Comment:HIV-1 p24 Ag and/or HIV-1/HIV-2 Ab not detected.A test result that is nonreactive does not exclude thepossibility of exposure to or infection with HIV-1 and/orHIV-2. Nonreactive results in this assay for individualswith prior exposure to HIV-1 and/or HIV-2 may be due toantigen and antibody levels that are below the limit ofdetection of this assay.The [employer] HIV Ag/Ab Combo assay result andsupplemental assay results should be interpreted inconjunction with the patient's clinical presentation,history and other laboratory results. If the results areinconsistent with clinical evidence, additional testing issuggested to confirm the result. Blood Venous blood specimen / Unknown 02/03/2023 9:53 AM EST 02/03/2023 10:56 AM EST us Carlos Whitlock MD LAB BLOOD ORDERABLES Final Res ult [facility] [address] [place] [phone] from Last 3 Months or Most Recently Relevant to Health Maintenance Insurance [employer] [facility] < 65 D[facility]AL - [facility] Care Teams Fly Raiser Lockstitch Relationship Specialty Start Date End Date Mia Cowan ANP [address] [place] [address] PCP - General Family Medicine 12/20/19
--- OUTSIDE RECORDS SUMMARY | 2024-11-09 14:34 | XMS_ITS | Encounter Summary ---
Author Organization [employer] Address [address] [place] [address] 7 [place] [address] Care Team Providers Care Family Life Educator Name Role Phone Jessa Gilliland Primary Care Provider [phone] Reason for Visit * Reason Onset Date Comments NOtes requested 11/09/2024 Encounter Details Date Type Department Care Team (Late st Contact Info) Description 11/09/2024 Telephone [facility] MEDIC[facility] [address] [place] [address] Jessa Gilliland ANP [address] [place] [address] NOtes requested Social History Tobacco Use Types Packs/Day Years [...] with others, in a hotel, in a usp, living outside on the street, on a [...] encounter Miscellaneous Notes * Telephone Encounter - Adele Phan MA - 11/09/2024 1:59 PM EDT Bid Analyst requested notes via fax from: Cardiology .Evaluate and treat Dr Sage [phone] FAX [phone] [facility] cardiovascular [phone] FAX [phone] * Telephone Encounter - Adele Phan MA - 11/09/2024 1:58 PM EDT ----- Message from Jessa Gilliland sent at 11/03/2024 4:08 PM EDT ----- Just kidding - I think he went to [facility] cardiovascular assoc documented in this encounter Plan of Treatment Upcoming Encounters Date Type Department Care Team (Late st Contact Info) Description 11/21/2024 9:30 AM EDT Clinical Support [facility] [address] [place] [phone] 01/05/2025 9:30 AM EST Office Visit [facility] [address] [place] [address] Jessa Gilliland ANP [address] [place] [address] documented as of this encounter Visit Diagnoses Not on filedocumented in this encounter Additional Health Concerns Assessment Noted Time PHQ-9 Depression Total Score: 9 11/04/19 25 10:15 AM EDT documented as of this encounter Care Teams Family Life Educator Relationship Specialty Start Date End Date Jessa Gilliland ANP [address] [place] [address] PCP - General Family Medicine 12/20/19 documented as of this encounter
--- OUTSIDE RECORDS SUMMARY | 2024-11-09 14:34 | XMS_ITS | Encounter Summary ---
Author Organization [employer] Address [address] [facility] 7t [place] [address] Care Team Providers Care Piper Helper Name Role Phone Jessa Gilliland Primary Care Provider [phone] Reason for Visit * Reason Onset Date Comments Appointment 02/20/2022 Patient called i n at 11 stating that he didn't make it to 10am appt because mother is in the hospital. Informed patient to call back when everything blows over for rescheduling. Appt has not been removed from schedule due to having called 1 hour behind. Unsure if [facility] dental would like to cancel appt. Encounter Details Date Type Department Care Team (Late st Contact Info) Description 02/20/2022 Telephone [facility] ADULT DENTAL [address] [place], [place] [phone] Josesito Lennon DDS [address] [place], [place] [phone] Appointment (Patient called in at 11 stating that he didn't make it to 10am appt because mother is in the hospital. Informed patient to call back when everything blows over for rescheduling. Appt has not been removed from schedule due to having called 1 hour behind. Unsure if [facility] dental would like to cancel appt. ) [...] having called 1 hour behind. Unsure if [facility] dental would like to cancel appt. documented in this encounter Plan of Treatment Upcoming Encounters Date Type Department Care Team (Late st Contact Info) Description 11/21/2024 9:30 AM EDT Clinical Support [address] [address] 01/05/2025 9:30 AM EST Office Visit [facility] MEDICINE [address] [place] [phone] Jessa Gilliland ANP [address] [place] [phone] documented as of this encounter Visit Diagnoses Not on filedocumented in this encounter Care Teams Piper Helper Relationship Specialty Start Date End Date Jessa Gilliland ANP [address] [place] [phone] PCP - General Family Medicine 12/20/19 documented as of this encounter
--- OUTSIDE RECORDS SUMMARY | 2024-11-09 14:34 | XMS_ITS | Encounter Summary ---
Author Organization [employer] Address [address] [place] [address] 7 [place] [address] Care Team Providers Care Getterer Name Role Phone Jessa Gilliland Primary Care Provider [phone] Reason for Referral * Imaging (Routine) - Closed Specialty Diagnoses / Procedures Referred By Angie zafar Referred To Contact Radiology Diagnoses Chronic hepatitis C without hepatic coma (CMS/HCC) Procedures US Abdomen Comp w elastography Jessa Gilliland ANP [address] [place] [address] Phone: tel: fax: [facility] Referral ID Status Reason Start Date Expiration Date Visits Re quested Visits Authorized [id number] Closed 03/03/2023 03/02/2024 1 1 Encounter Details Date Type Department Care Team (Late st Contact Info) Description 03/03/2023 Orders Only [facility] [address] [place] [address] Berta Lilly RN [address] [place] [address] Chronic hepatitis C without hepatic coma (CMS/HCC) [...] Description 11/21/2024 9:30 AM EDT Clinical Support [address] [address] 01/05/2025 9:30 AM EST Office Visit [address] [address] Jessa Gilliland ANP [address] [place] [phone] Scheduled Orders Name Type Priority Associated Diagnoses Orde r Schedule US Abdomen Comp w elastography Imaging Routine Chronic hepatitis C without hepatic coma (CMS/HCC) Expected: 03/03/2023 (Approximate), Expires: 03/03/2024 documented as of this encounter Visit Diagnoses Diagnosis Chronic hepatitis C without hepatic coma (CMS/HCC) documented in this encounter Care Teams Getterer Relationship Specialty Start Date End Date Jessa Gilliland ANP [address] [place] [address] PCP - General Family Medicine 12/20/19 documented as of this encounter
--- OUTSIDE RECORDS SUMMARY | 2024-11-09 14:34 | XMS_ITS | Encounter Summary ---
Author Organization [employer] Address [address] [place] [address] 7t [place] [address] Care Team Providers Care Spin Instructor Name Role Phone Jessa Gilliland Primary Care Provider [phone] Encounter Details Date Type Department Care Team (Late st Contact Info) Description 11/08/2024 Orders Only [facility] [address] [place] [address] Fay Beavers, RN [address] [place] [address] Chronic hepatitis C without hepatic coma (CMS/HCC) [...] with others, in a hotel, in a custodial, living outside on the street, on a [...] Description 11/21/2024 9:30 AM EDT Clinical Support [address] [address] 01/05/2025 9:30 AM EST Office Visit [facility] [address] [place] [address] Jessa Gilliland ANP [address] [place] [address] Scheduled Orders Name Type Priority Associated Diagnoses Orde r Schedule CBC auto differential Lab Routine Chronic hepatitis C without hepatic coma (CMS/HCC) Expected: 11/08/2024 (Approximate), Expires: 11/08/2025 Prothrombin Time-INR Lab Routine Chronic hepatitis C without hepatic coma (CMS/HCC) Expected: 11/08/2024 (Approximate), Expires: 11/08/2025 Hepatic Function Panel Lab Routine Chronic hepatitis C without hepatic coma (CMS/HCC) Expected: 11/08/2024 (Approximate), Expires: 11/08/2025 HIV-1/2 Antigen and Antibodies, Fourth Generation, with Reflexes Lab Routine Chronic hepatitis C without hepatic coma (CMS/HCC) Expected: 11/08/2024 (Approximate), Expires: 11/08/2025 Hepatitis C Viral RNA, Genotype, LiPA Lab Routine Chronic hepatitis C without hepatic coma (CMS/HCC) Expected: 11/08/2024 (Approximate), Expires: 11/08/2025 Liver Fibrosis (HCV), FibroTest-ActiTest Panel Lab Routine Chronic hepatitis C without hepatic coma (CMS/HCC) Expected: 11/08/2024 (Approximate), Expires: 11/08/2025 Hepatitis B Surface Antibody, Qualitative Lab Routine Chronic hepatitis C without hepatic coma (CMS/HCC) Expected: 11/08/2024 (Approximate), Expires: 11/08/2025 Hepatitis B surface antigen, EIA Lab Routine Chronic hepatitis C without hepatic coma (CMS/HCC) Expected: 11/08/2024 (Approximate), Expires: 11/08/2025 Hepatitis B Core Antibody, Total Lab Routine Chronic hepatitis C without hepatic coma (CMS/HCC) Expected: 11/08/2024 (Approximate), Expires: 11/08/2025 documented as of this encounter Procedures Procedure Name Priority Date/Time Associated Diagnosis Comments CBC WITH AUTO DIFFERENTIAL Routine 11/09/2024 11:31 AM EDT Chronic hepatitis C without hepatic coma (CMS/HCC) PROTHROMBIN TIME-INR Routine 11/09/2024 11:31 AM EDT Chronic hepatitis C without hepatic coma (CMS/HCC) HEPATIC FUNCTION PANEL Routine 11/09/2024 11:31 AM EDT Chronic hepatitis C without hepatic coma (CMS/HCC) documented in this encounter Results * (ABNORMAL) Hepatic Function Panel (11/09/2024 11:31 AM EDT) Bilirubin, Total 0.5 0.0 - 1.0 mg/dL [facility] Bilirubin, Direct 0.1 0.0 - 0.5 mg/dL [facility] Aspartate Amino Transferase 94(H) 5 - 37 U/L [facility] Alanine Aminotransferase 129(H) 0 - 40 U/L [facility] Total Protein 7.2 6.5 - 8.0 g/dL [facility] Albumin Level 4.0 3.5 - 5.0 g/dL [facility] Alkaline Phosphatase 96 39 - 117 U/L [facility] 11/09/2024 11:3 1 AM EDT 11/09/2024 1:47 PM EDT Sasha Field MD LAB BLOOD ORDERABLES Final R esult [facility] [address] [place] [phone] [phone] * (ABNORMAL) CBC auto differential (11/09/2024 11:31 AM EDT) White Blood Count 6.1 4.8 - 10.8 X10*3/uL [facility] Red Blood Count 4.85 4.60 - 5.80 X10*6/uL [facility] Hemoglobin 15.0 14.0 - 18.0 g/dl [facility] Hematocrit 44.4 42.0 - 52.0 % [facility] Mean Corpuscular Volume 91.5 80.0 - 98.0 fL [facility] Mean Corpuscular Hemoglobin 30.9 27.0 - 33.0 pg [facility] Mean Corpuscular HGB Conc 33.8 31.0 - 36.0 g/dl [facility] Red Cell Distribution Width 14.3 11.0 - 16.0 % [facility] Platelet Count 339 160 - 400 X10*3/uL [facility] Mean Platelet Volume 11.1 9.4 - 12.4 fL [facility] Neutrophils Percent Auto 48.4 45 - 73 % [facility] Imm Gran Pct Auto 1.6(H) 0.0 - 0.4 % [facility] Lymphocytes Percent Auto 32.9 20 - 40 % [facility] Monocytes Percent Auto 13.5(H) 2 - 11 % [facility] Eosinophils Percent Auto 2.9 0 - 4 % [facility] Basophils Percent Auto 0.7 0 - 2 % [facility] NRBC Pct Auto 0.0 0.0 - 0.2 /100WBC [facility] Neutrophils Absolute Auto 3.0 2.0 - 8.3 x10*3/uL [facility] Imm Gran Abs Auto 0.10(H) 0.00 - 0.03 X10*3/uL [facility] Lymphocytes Absolute Auto 2.0 1.2 - 4.9 X10*3/uL [facility] Monocytes Absolute Auto 0.8 0.1 - 1.2 X10*3/uL [facility] Eosinophils Absolute Auto 0.2 0.0 - 0.4 X10*3/uL [facility] Basophils Absolute Auto 0.0 0.0 - 0.2 X10*3/uL [facility] NRBC Abs Auto 0.000 0.0 - 0.012 X10*3/uL [facility] 11/09/2024 11:3 1 AM EDT 11/09/2024 1:32 PM EDT Sasha Field MD LAB BLOOD ORDERABLES Final R esult [facility] [address] [place] [phone] * (ABNORMAL) Prothrombin Time-INR (11/09/2024 11:31 AM EDT) Prothrombin Time 9.8(L) 10.9 - 12.4 SEC [facility] INTERNATIONAL NORM RATIO 0.9 0.9 - 1.1 [facility] Comment:INTERNATIONAL NORMAL IZED RATIO (INR) [...] MD LAB BLOOD ORDERABLES Final R esult [facility] [address] [place] [address] [phone] documented in this encounter Visit Diagnoses Diagnosis Chronic hepatitis C without hepatic coma (CMS/HCC) documented in this encounter Additional Health Concerns Assessment Noted Time PHQ-9 Depression Total Score: 9 11/04/19 25 10:15 AM EDT documented as of this encounter Care Teams Spin Instructor Relationship Specialty Start Date End Date Jessa Gilliland ANP [address] [place] [address] PCP - General Family Medicine 12/20/19 documented as of this encounter
--- OUTSIDE RECORDS SUMMARY | 2024-11-09 14:34 | XMS_ITS | Encounter Summary ---
Author Organization [employer] Address [address] [place] [address] 7t [place] [address] Care Team Providers Care Merchandise Pickup/Receiving Associate Name Role Phone Jessa Gilliland Primary Care Provider [phone] Reason for Visit * Reason Comments Med Change Request Encounter Details Date Type Department Care Team ([facility] st Contact Info) Description 11/21/2023 Refill [facility] [address] [place] [address] Jessa Gilliland ANP [address] [place] [address] Restless leg syndrome Social History Tobacco Use [...] 11/21/2024 9:30 AM EDT Clinical Support [address] [address] 01/05/2025 9:30 AM EST Office Visit [address] [address] Jessa Gilliland ANP [address] [place] [address] documented as of this encounter Visit Diagnoses Diagnosis Restless leg syndrome Restless legs syndrome (RLS) documented in this encounter Additional Health Concerns Assessment Noted Time PHQ-9 Depression Total Score: 6 10/15/19 24 3:04 PM EDT documented as of this encounter Care Teams Merchandise Pickup/Receiving Associate Relationship Specialty Start Date End Date Jessa Gilliland ANP [address] [place] [address] PCP - General Family Medicine 12/20/19 documented as of this encounter
--- OUTSIDE RECORDS SUMMARY | 2024-11-09 14:34 | XMS_ITS | Encounter Summary ---
Author Organization [employer] Address [address] [facility] 7t [place] [address] Care Team Providers Care Hydro Operator Name Role Phone Jessa Gilliland DIANE Primary Care Provider [phone] Encounter Details Date Type Department Care Team (Late st Contact Info) Description 11/08/2024 Telephone 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 Pt agrees to POC. RN called pt, RN reviewed release, daughter is not authorized. Daughter did answer the phone and will have pt return call to discuss tx. ----- Message from Jessa Gilliland sent at 11/04/2024 4:18 PM EDT ----- Please outreach for tx consideration, per daughter (on HIPAA) pt would like tx, thank you - pt has difficulty w/ coordinating care * Telephone Encounter - Fay Beavers RN - 11/08/2024 10:03 AM EDT RN called pt, RN reviewed release, daughter is not authorized. Daughter did answer the phone and will have pt return call to discuss tx. ----- Message from Jessa Gilliland sent at 11/04/2024 4:18 PM EDT ----- Please outreach for tx consideration, per daughter (on HIPAA) pt would like tx, thank you - pt has difficulty w/ coordinating care * Telephone Encounter - Fay Beavers RN - 11/08/2024 10:03 AM EDT ----- Message from Jessa Gilliland sent at 11/04/2024 4:18 PM EDT ----- Please outreach for tx consideration, per daughter (on HIPAA) pt would like tx, thank you - pt has difficulty w/ coordinating care documented in this encounter Plan of Treatment Upcoming Encounters Date Type Department Care Team (Late st Contact Info) Description 11/21/2024 9:30 AM EDT Clinical Support [address] [address] 01/05/2025 9:30 AM EST Office Visit [address] [address] Jessa Gilliland ANP [address] [place] [address] documented as of this encounter Visit Diagnoses Not on filedocumented in this encounter Additional Health Concerns Assessment Noted Time PHQ-9 Depression Total Score: 9 11/04/19 25 10:15 AM EDT documented as of this encounter Care Teams Hydro Operator Relationship Specialty Start Date End Date Jessa Gilliland ANP [address] [place] [address] PCP - General Family Medicine 12/20/19 documented as of this encounter
--- OUTSIDE RECORDS SUMMARY | 2024-11-09 14:34 | XMS_ITS | Clinical Summary ---
Author Organization [facility] Address [address] [place] [address] Care Team Providers Care Software Engineering Manager Name Role Phone Unavailable Primary Care Provider [...]
--- OUTSIDE RECORDS SUMMARY | 2024-11-09 14:34 | XMS_ITS | Encounter Summary ---
Author Organization [employer] Address [address] [place] [address] 7t [place] [address] Care Team Providers Care Physical Science Aide Name Role Phone Jessa Gilliland Primary Care Provider [phone] Encounter Details Date Type Department Care Team (Late st Contact Info) Description 01/22/2022 Abstract [facility] [address] [place] [address] Dental, Provider, DDS Social History Tobacco Use [...] Description 11/21/2024 9:30 AM EDT Clinical Support [facility] MEDICINE [address] [place] [address] 01/05/2025 9:30 AM EST Office Visit [facility] [address] [place] [address] Jessa Gilliland ANP [address] [place] [address] documented as of this encounter Procedures Procedure [...] on filedocumented in this encounter Care Teams Physical Science Aide Relationship Specialty Start Date End Date Jessa Gilliland ANP [address] [place] [address] PCP - General Family Medicine 12/20/19 documented as of this encounter
--- OUTSIDE RECORDS SUMMARY | 2024-11-09 14:34 | XMS_ITS | Encounter Summary ---
Author Organization [employer] Address [address] [place] [address] 7t [place] [address] Care Team Providers Care Firearms Specialist Name Role Phone Jessa Gilliland Primary Care Provider Reason for Visit * Reason Comments Med Refill Encounter Details Date Type Department Care Team (Late st Contact Info) Description 08/26/[address] [facility] [address] [place] [address] Jessa Gilliland ANP [address] [place], [place] [phone] Restless leg syndrome Social History Tobacco Use [...] Description 11/21/2024 9:30 AM EDT Clinical Support [address] [address] 01/05/2025 9:30 AM EST Office Visit [address] [address] Jessa Gilliland ANP [address] [place] [address] documented as of this encounter Visit Diagnoses Diagnosis Restless leg syndrome Restless legs syndrome (RLS) documented in this encounter Additional Health Concerns Assessment Noted Time PHQ-9 Depression Total Score: 6 10/15/19 24 3:04 PM EDT documented as of this encounter Care Teams Firearms Specialist Relationship Specialty Start Date End Date Jessa Gilliland ANP [address] [place] [address] PCP - General Family Medicine 12/20/19 documented as of this encounter
--- OUTSIDE RECORDS SUMMARY | 2024-11-09 14:34 | XMS_ITS | Encounter Summary ---
Author Organization [employer] Address [address] [place] [address] 7 [place] [address] Care Team Providers Care Autocad Electrical Designer Name Role Phone Jessa Gilliland Primary Care Provider [phone] Reason for Visit * Reason Onset Date Comments Results 11/03/2024 Encounter Details Date Type Department Care Team (Latest Contact Info) Description 11/03/2024 Results Follow-Up [facility] [address] [place] [address] Jessa Gilliland ANP [address] [place] [address] PSA,Total, Lipid Panel, Standard, Comprehensive Metabolic Panel, Additional followed-up results: 3 Social History Tobacco Use Types Packs/Day Years [...] difficult at all 11/03/2024 10:15 AM EDT Ser Liz malagon [place] documented as of this encounter Miscellaneous Notes * Telephone Encounter - Mely Garcia RN - 11/09/2024 9:25 AM EDT Telephone call placed to pt regarding below message x2. Both times someone answered the phone but did not say anything or respond. Will retask for another attempt. * Telephone Encounter - Mely Garcia RN - 11/09/2024 9:20 AM EDT ----- Message from Jessa Gilliland sent at 11/08/2024 5:37 PM EDT ----- Called pt, no answer, LVM to call clinic. Please let pt know: XR showed Severe disc degeneration (arthritis) at the very bottom of spine. If agrees, [facility]. Labs showed: renal function elevated though actually improved from previous. Hydrate well and avoidNSAIDs (naproxen, aleve, ibuprofen, advil, motrin etc.). Please get urine test as ordered to check urine for protein. elevated cholesterol. Would also recommend we consider starting a medication for cholesterol calledzetia, please let me know if he agrees thanks. (Not recommending statin d/t LFTs 3x ULN, can reconsider if these come down). Blood sugar also mildly elevated, recommend lifestyle interventions as below. Lifestyle recommendations: be as active as able, ideally exercise 150min moderate intensity or 75min vigorous intensity weekly; increase intake of vegetables, fruits, whole grains, fish. Try to minimize intake of sugary or greasy food and drink. Use olive oil or vegetable, peanut, canola, or similar oil for cooking. Decrease or stop drinking alcohol if you drink, quit/decrease smoking if you smoke. The 10-year ASCVD risk score (Asuncion LOVING, et al., 2019) is: 10.9% Values used to calculate the score: Age: 59 years Sex: Male Is Non- : No Diabetic: No Tobacco smoker: No Systolic Blood Pressure: 140 mmHg Is BP treated: Yes HDL Cholesterol: 51 mg/dL Total Cholesterol: 224 mg/dL ----- Message ----- From: Interface, Ris Results In Sent: 11/03/2024 1:30 PM EDT To: DIAEN Mcadams * Result Encounter Note - DIANE Mcadams - 11/08/2024 5:37 PM EDT Called pt, no answer, LVM to call clinic. Please let pt know: XR showed Severe disc degeneration (arthritis) at the very bottom of spine. If agrees, can send [facility] for eval. Labs showed: renal function elevated though actually improved from previous. Hydrate well and avoidNSAIDs (naproxen, aleve, ibuprofen, advil, motrin etc.). Please get urine test as ordered to check urine for protein. elevated cholesterol. Would also recommend we consider starting a medication for cholesterol calledzetia, please let me know if he agrees thanks. (Not recommending statin d/t LFTs 3x ULN, can reconsider if these come down). Blood sugar also mildly elevated, recommend lifestyle interventions as below. Lifestyle recommendations: be as active as able, ideally exercise 150min moderate intensity or 75min vigorous intensity weekly; increase intake of vegetables, fruits, whole grains, fish. Try to minimize intake of sugary or greasy food and drink. Use olive oil or vegetable, peanut, canola, or similar oil for cooking. Decrease or stop drinking alcohol if you drink, quit/decrease smoking if you smoke. The 10-year ASCVD risk score (Asuncion LOVING, et al., 2019) is: 10.9% Values used to calculate the score: Age: 59 years Sex: Male Is Non- : No Diabetic: No Tobacco smoker: No Systolic Blood Pressure: 140 mmHg Is BP treated: Yes HDL Cholesterol: 51 mg/dL Total Cholesterol: 224 mg/dL * Result Encounter Note - DIANE Mcadams - 11/04/2024 4:19 PM EDT Referred to HCV team after discussion w/ daughter * Result Encounter Note - DIANE Mcadams - 11/03/2024 3:01 PM EDT Patient to be referred urgently back to urology for follow-up documented in this encounter Plan of Treatment Upcoming Encounters Date Type Department Care Team (Late st Contact Info) Description 11/21/2024 9:30 AM EDT Clinical Support [facility] [address] [place] [address] 01/05/2025 9:30 AM EST Office Visit [facility] [address] [place] [address] Jessa Gilliland ANP [address] [place] [address] documented as of this encounter Visit Diagnoses Diagnosis Degeneration of intervertebral disc of lumbosacral region with discogenic back pain- Primary Prediabetes Other abnormal glucose Stage 3a chronic kidney disease (CMS/HCC) 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
--- OUTSIDE RECORDS SUMMARY | 2024-11-09 14:34 | XMS_ITS | Encounter Summary ---
Author Organization [employer] Address [address] [place] [address] 7t [place] [address] Care Team Providers Care Harbor Master Name Role Phone Jessa Gilliland Primary Care Provider [phone] Encounter Details Date Type Department Care Team (Latest Contact Info) Description 01/23/2021 Abstract [facility] CON[facility] Dental, Provider, DDS Social History Tobacco [...] Description 11/21/2024 9:30 AM EDT Clinical Support [facility] MEDICINE [address] [place] [address] 01/05/2025 9:30 AM EST Office Visit [facility] [address] [place] [address] Jessa Gilliland ANP [address] [place] [address] documented as of this encounter Visit Diagnoses Not on filedocumented in this encounter Care Teams Harbor Master Relationship Specialty Start Date End Date Jessa Gilliland ANP [address] [place] [address] PCP - General Family Medicine 12/20/19 documented as of this encounter
--- OUTSIDE RECORDS SUMMARY | 2024-11-09 14:34 | XMS_ITS | Encounter Summary ---
Author Organization [email or web address] Address [address] [place] [address] 7t [place] [address] Care Team Providers Care Meteorological Engineer Name Role Phone Jessa Gilliland Primary Care Provider [phone] Reason for Visit * Reason Onset Date Comments Cardiology F/U 11/04/2024 Encounter Details Date Type Department Care Team (Late st Contact Info) Description 11/04/2024 Telephone [facility] MEDICINE [address] [place] [address] Lakisha Bose RN Cardiology F/U Social History Tobacco Use Types Packs/Day Years [...] with others, in a hotel, in a snf, living outside on the street, on a [...] encounter Miscellaneous Notes * Telephone Encounter - Lakisha Bose RN - 11/04/2024 10:51 AM EDT TC placed to the pt and LVM to call back the office to inform of the message below ----- Message from Jessa Gilliland sent at 11/03/2024 4:14 PM EDT ----- Please let pt's daughter know that I was 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 Tiano-showed the last 2 visits there so he cannot miss this next appt please. I have also sent carvedilol to re-start at 12.5mg twice daily for HTN in additional to meds already on. thanks documented in this encounter Plan of Treatment Upcoming Encounters Date Type Department Care Team (Late st Contact Info) Description 11/21/2024 9:30 AM EDT Clinical Support [facility] MEDICINE [address] [place] [address] 01/05/2025 9:30 AM EST Office Visit [facility] MEDICINE [address] [place] [address] Jessa Gilliland ANP [address] [place] [address] documented as of this encounter Visit Diagnoses Not on filedocumented in this encounter Additional Health Concerns Assessment Noted Time PHQ-9 Depression Total Score: 9 11/04/19 25 10:15 AM EDT documented as of this encounter Care Teams Meteorological Engineer Relationship Specialty Start Date End Date Jessa Gilliland ANP [address] [place] [address] PCP - General Family Medicine 12/20/19 documented as of this encounter
--- OUTSIDE RECORDS SUMMARY | 2024-11-09 14:34 | XMS_ITS | Clinical Summary ---
Author Organization [employer] [facility] Address [address] [place] [address] Care Team Providers Care Paleontology Teacher Name Role Phone Unavailable Primary Care Provider [...] Health Maintenance Due Date Last Done Comments Hepatitis A Vaccines (1 of 2 - Risk 2-dose series) 1984 Colorectal Cancer Screening: Colonoscopy 01/31/2022 Hepatitis C Screening 01/31/2022 Social Influencers of Health Screening 01/31/2022 Depression Screening 03/02/2024 COVID-19 Vaccine ( season) 2024 03/10/2023, 03/22/2021, 06/27/2020, Additional history exists Influenza Vaccine (#1) 2024 , 03/22/2021, 02/20/2020, Additional history exists Hypertension/CHF/CAD Annual BMP Blood Test 11/03/2025 11/03/2024, 07/02/2021, 07/02/2021 Cholesterol Screening (Lipid Panel) 11/03/2029 11/03/2024 DTaP,Tdap,and Td Vaccines (4 - Td or Tdap) 11/03/2034 11/03/2024, 10/27/2011, 11/19/2000 MMR Vaccines Aged Out 11/19/2000 No longer eligi ble based on patient's age to complete this topic Hepatitis B Vaccines Completed 02/27/2010, 05/08/2005, 04/09/2005 Zoster Vaccines Completed 04/24/2020, 02/20/2020 HIV Screening Completed 02/03/2023 Pneumococcal Vaccine: 50+ Years Completed 11/03/2024, 04/09/2005 [...] to complete this topic RSV Immunization Patients Under 20 months Aged Out No longer eligible based on patient's age to complete this topic Varicella Vaccines Aged Out No longer eligible based on patient's age to complete this topic
--- OUTSIDE RECORDS SUMMARY | 2024-11-09 14:34 | XMS_ITS | Encounter Summary ---
Author Organization [employer] Address [address] [place] [address] [address] [place] [address] Care Team Providers Care Geomagnetician Name Role Phone Jessa Gilliland Primary Care Provider [phone] Encounter Details Date Type Department Care Team (Late st Contact Info) Description 11/07/[address] [facility] [address] [place] [address] Jessa Gilliland ANP [address] [place] [address] Social History Tobacco Use Types Packs/Day Years [...] encounter Miscellaneous Notes * Telephone Encounter - Madeline Agee MA - 11/07/2024 2:25 PM EDT Estela is requesting notes from Cardiology. documented in this encounter Plan of Treatment Upcoming Encounters Date Type Department Care Team (Late st Contact Info) Description 11/21/2024 9:30 AM EDT Clinical Support [facility] [address] [place] [phone] 01/05/2025 9:30 AM EST Office Visit [facility] [address] [place] [phone] Jessa Gilliland ANP [address] [place] [phone] documented as of this encounter Visit Diagnoses Not on filedocumented in this encounter Additional Health Concerns Assessment Noted Time PHQ-9 Depression Total Score: 9 11/04/19 25 10:15 AM EDT documented as of this encounter Care Teams Geomagnetician Relationship Specialty Start Date End Date Jessa Gilliland ANP [address] [place] [phone] PCP - General Family Medicine 12/20/19 documented as of this encounter
[2024-11-10 08:15] LABS: HBS Num1 > 1000.00 mIU/mL (0-7.99); HBc Num1 0.04 S/CO (0.00-0.79); HBsAGNum1 0.58 S/CO (0.00-0.99); HIV Num 1 0.05 S/CO (0.00-0.99); Hepatitis B Surface Antigen Negative (Negative); ~Hepatitis B Surface Antibody REACTIVE (Nonreactive)
[2024-11-15 23:48] LABS: FIB-ALT 89 U/L (9-46); FIB-Alpha-2-Macroglobulin 356 mg/dL (106-279); FIB-Apolipoprotein A1 184 mg/dL (94-176); FIB-GGT 282 U/L (3-85); FIB-Haptoglobin 270 mg/dL (43-212); FIB-Total Bilirubin 0.3 mg/dL (0.2-1.2); Liver Fibrosis Score 0.46; Liver Fibrosis Stage F1-F2; Nec Inflam Act Grade A2; Nec Inflam Act Score 0.58
== END 2024-11-09 11:26 | disposition home or self-care (01) ==
LOC: HO.HHCL 11:25
PROVIDERS: PCP Nurse Practitioner Primary Care; Visit Provider Family Medicine
DX: B18.2 Chronic viral hepatitis C (principal); Z11.4 Encounter for screening for human immunodeficiency virus [HIV]
CPT/HCPCS: 36415; 80076; 81596; 85025; 85610; 86704; 86706; 87340; 87389; 87902